=== PATIENT | male | born 1975 | race Caucasian/White ===

== ENCOUNTER 2022-03-13 14:26 | Outpatient (REF) | payer OTHER, SELFPAY ==
[2022-03-13 15:29] LABS: Influenza A PCR NEGATIVE (Negative); Influenza B PCR NEGATIVE (Negative); Resp Syncy Virus RNA Qual PCR NEGATIVE (Negative); SARS COV2 PCR INHOUSE NEGATIVE (Negative)
== END 2022-03-13 14:27 | disposition home or self-care (01) ==
LOC: HO.LNP 14:26
PROVIDERS: Visit Provider Internal Medicine
DX: Z20.822 Contact with and (suspected) exposure to COVID-19 (principal); R43.9 Unspecified disturbances of smell and taste
CPT/HCPCS: 0241U

== ENCOUNTER 2023-03-13 12:28 | Outpatient (AMB) | payer OTHER, SELFPAY ==
--- NOTE | 2023-03-13 12:33 | MHC.PC.OV ---
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 He also wanted to mention he had a hernia surgery at least 20 years back and is now feeling the mesh states it feels like its poking him. Allergies acetaminophen [From Percocet] Adverse Reaction (Intermediate, Verified 03/13/23 12:59) Hives oxycodone [From Percocet] Adverse Reaction (Intermediate, Verified 03/13/23 12:59) Hives Medication List - Last Reconciled 03/13/23 by Jd Garcia, HENRY lidocaine 5% 1 appl topical BEDTIME Tobacco use date assessed: 03/13/23 Dental Screening Dental Screen Date: 03/13/23 Did you have a dental visit in the last 12 months?: Yes Did you have a dental problem in the last 6 months where you did not have access to dental care?: No Was dental information given to patient?: Patient has dentist HPI HPI Comments History of Present Illness Details Patient is a 47-year-old male in today to establish care. 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 He is up-to-date on all immunizations aside from this year's booster for influenza and COVID. He will receive the influenza vaccine in office today. True is also due for colonoscopy, will refer to Gastroenterology. He has a chief complaint of lower back pain, which radiates down his legs bilaterally. He has a long history of lower back pain and spine issues, which is significant for disc herniation. 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 Patient has diagnostic imaging from 2014 in [facility] which demonstrated mild degenerative disc changes. Patient will send other medical records. Patient states that he recently was shoveling snow and that the pain increased after that. Denies any trauma to the area. [facility] Surgical History Hx of hernia repair Family History Maternal Grandmother Diabetes Social History Housing: House Patient Tobacco Use Status: Never used Tobacco e-Cigarette/Vaping Use: Never Used service: Yes Current occupational status: employed Cognitive needs: No Hearing needs: No Vision needs: Yes Questionnaire PHQ-9 Over the last 2 weeks, how often have you been bothered by any of the following problems? 1. Little interest or pleasure in doing things: not at all 2. Feeling down, depressed, or hopeless: not at all 3. Trouble falling or staying asleep, or sleeping too much: nearly every day 4. Feeling tired or having little energy: more than half the days 5. Poor appetite or overeating: not at all 6. Feeling bad about yourself - or that you are a failure or have let yourself or your family down: not at all 7. Trouble concentrating on things, such as reading the newspaper or watching television: not at all 8. Moving or speaking so slowly that other people could have noticed. Or the opposite - being so fidgety or restless that you have been moving around a lot more than usual: not at all 9. Thoughts that you would be better off or of hurting yourself in some way: not at all Total score: 5 Depression Screening Interpretation: Negative Depression Screening Done: Yes 50299 - PHQ-9 Billing: Yes Source: Developed by Drs. Lopez Moore, Kaylyn Quinn, Uriah Ramos and colleagues, with an educational kadi from [employer]. Thrive Questionnaire Date Thrive assessed: 03/13/23 I am a: Patient What is your living situation today?: I have a steady place to live Within the past 12 months, did the food you bought not last and you didn't have the money to get more?: Never true Within the past 12 months, did you worry whether your food would run out before you got money to buy more?: Never true Do you have trouble paying for medicines?: No Do you have trouble getting transportation to medical appointments?: No Do you have trouble paying your heating and electricity bill?: No Do you have trouble taking care of your child, family member or friend?: No Do you have trouble with day-to-day activities such as bathing, preparing meals, shopping, managing finances, etc.?: No Are you currently unemployed and looking for a job?: No Are you interested in more education?: No AUDIT C Alcohol Use Questionnaire (AUDIT-C) 1. How often do you have a drink containing alcohol?: Monthly or less 2. How many drinks containing alcohol do you have on a typical day when you are drinking?: 1 or 2 3. How often do you have six or more drinks on one occasion?: Never Total Score: 1 Score Reviewed/Action Taken: No JORDAN-7 AMB Questionnaire JORDAN-7 Date JORDAN - 7 assessed: 03/13/23 Feeling nervous, anxious, or on edge: 2 = More than half the days Not being able to stop or control worryin = Not at all Worrying too much about different things: 1 = Several days Trouble relaxin = Several days Being so restless that it is hard to sit still: 1 = Several days Becoming easily annoyed or irritable: 2 = More than half the days Feeling afraid as if something awful might happen: 3 = Nearly every day Total JORDAN-7 score (0-4 normal; 5-9 mild; 10-14 moderate; 15-21 severe): 10 Source: Developed by Drs. Lopez Moore, Kaylyn Quinn, Uriah Ramos and colleagues, with an educational kadi from [employer]. JORDAN-7 Assessment Billing JORDAN-7 Assessment Tool: JORDAN-7 Assessment 12813 Review of Systems Const Details: Constitutional : No Weight loss, No Fever, No Chills, No Fatigue, No Malaise ENT/Mouth : No sore throat, No Rhinorrhea Eyes: No Eye Pain, No Swelling, No Redness Cardiovascular : No Chest Pain, No SOB, No Dyspnea on Exertion, No Orthopnea, No Edema, No Palpitations Respiratory : No Cough, No Sputum, No Wheezing Gastrointestinal : No Nausea, No Vomiting, No Diarrhea, No Constipation, No abdominal Pain, No Hematochezia, No Melena Genitourinary : No Dysuria, No Urinary Frequency, No Hematuria, Musculoskeletal : Admits bilateral lower back pain. Skin : No Skin Lesions, No rash Neuro : No Weakness, No Numbness, No Dizziness, No Headache Psych : No Anxiety/Panic, No Depression Heme/Lymph: No Bruising, No Bleeding,No Lymphadenopathy Endocrine : No Polyuria, No Polydipsia All other systems reviewed and are negative Physical exam (Primary Care) Vital Signs: Last Vital Signs Pulse 97 03/13/23 12:36 BP 130/90 H 03/13/23 12:36 Pulse Ox 94 03/13/23 12:36 Oxygen Delivery Method Room Air 03/13/23 12:36 Care Plan Goal for BP management: Vital signs reviewed and stable. Patient will take blood pressure readings at home. BMI result Body Mass Index 33.0 Tobacco/Smoking Status: Tobacco use Status Tobacco use date assessed 03/13/23 03/13/23 12:44 Patient Tobacco Use Status Never used Tobacco 03/13/23 12:44 e-Cigarette/Vaping Use Never Used 03/13/23 12:44 PHQ-9: PHQ-9 Score PHQ-9: Total score 5 03/13/23 13:28 Depression Screening Interpretation: Negative Thrive Assessment: Date of Thrive Assessment Date Thrive assessed 03/13/23 03/13/23 13:28 Const Other: Appearance: Alert.? Oriented X3.? No acute distress.? Neck: Normal inspection.? Neck supple.?Full ROM CVS: Normal heart rate and rhythm.? Pulses normal.? Respiratory: No respiratory distress.? Breath sounds normal.? Skin: Skin warm and dry.? Normal skin color.? Normal skin turgor.?No bruising. Extremities: No lower extremity edema.? Back: No midline tenderness, no C-spine tenderness, Limited range of motion to flexion and extension. Positive straight leg test bilaterally. Neuro: Oriented X 3.? No motor deficit.? No sensory deficit. CN 2-12 intact Office Procedures Flu Questionnaire Does the patient have a severe egg allergy?: No Does the patient have severe life threatening allergies?: No Does the patient have a fever or illness today?: No Has the patient ever had Guillain-Denver Syndrome?: No Has the patient ever had any past reaction to a flu shot?: No Immunizations flu vacc [id number] 6mos up(PF) 60 mcg(15 mcgx4)/0.5 mL IM syringe Performing Provider: HENRY Pritchard [place] [facility] Administered by: Melisa Vicente CMA on 03/13/23 13:25 Dose Route Admin Location Dispensed Lot Number Expiration Date [employer] Consultant 0.5 mL IM Left Deltoid 0.5 mL [id number] 09/01/23 02770-477-79 [employer] VIS Given Date VIS Provided VIS Publication Date 03/13/23 Single Vaccine 20 Eligibility Eligibility Date Funding Source Not [facility] Eligible 03/13/23 Private Results Reviewed Results Reviewed: Will call patient with lab results. Assessment and Plan Assessment & Plan (1) Low back pain: Comment: Acute on chronic low back pain. Will give patient meloxicam, Flexeril, solanpas, to be taken as prescribed. He has been educated on signs of worsening symptoms and when to report to the office or when to report to the emergency room. Will give referral to [facility]. Patient may need updated imaging. Code(s): M54.50 - Low back pain, unspecified Qualifiers: Chronicity: acute Back pain laterality: bilateral Sciatica presence: with sciatica Sciatica laterality: bilateral sciatica Qualified Code(s): M54.42 - Lumbago with sciatica, left side; M54.41 - Lumbago with sciatica, right side Plan: Patient will follow-up in 3-4 months with physical exam. Plan Take your medications as prescribed. If you were prescribed antibiotics today, it is important that you take your medication to their entirety, do not skip any doses, do not finish them early. Follow-up with your primary care provider this week. Return to the emergency department with new or worsening symptoms. Such as fevers, chills, chest pain, shortness of breath, nausea, vomiting, dizziness, headache, vision changes, lethargy In case of emergency call 911 Orders: Orders Complete Blood Count Auto Diff Today Z13.0 - Encounter for screening for diseases of the blood and blood-forming organs and certain disorders involving the immune mechanism Comprehensive Met. Panel Today Z91.89 - Other specified personal risk factors, not elsewhere classified Lipid Panel Today E78.5 - Hyperlipidemia, unspecified PSA,Total (Free>4and<10) Today Z12.5 - Encounter for screening for malignant neoplasm of prostate Vitamin D 25-OH (D2 and D3) Today Z13.21 - Encounter for screening for nutritional disorder UA CC w/rflx Micro + Cult Today E86.0 - Dehydration TSH reflex Free T4 Today E03.9 - Hypothyroidism, unspecified Influenza [id number] Immunization Today Z23 - Encounter for immunization Referrals Neuro Spine Referral M54.50 - Low back pain, unspecified Gastroenterology Referral Z12.11 - Encounter for screening for malignant neoplasm of colon Medications: New lidocaine 4% (Salonpas (lidocaine)) 1 patch topical DAILY PRN 15 ea 0RF pain cyclobenzaprine 10 mg PO BEDTIME PRN 10 tabs 0RF muscle spasm meloxicam 15 mg PO DAILY 14 tabs 0RF Coding Level of Care Code Est Pt Level 3 (56870) Diagnoses Acute bilateral low back pain with bilateral sciatica M54.42; M54.41 Chronicity: acute Back pain laterality: bilateral Sciatica presence: with sciatica Sciatica laterality: bilateral sciatica Additional Codes JORDAN-7 Assessment Billing - JORDAN-7 Assessment Tool: JORDAN-7 Assessment 69622 ([id number]) Time Spent (min) 35
[2023-03-13 12:36] VITALS: BP 130/90; PULSE 97; O2SAT 94; BMI 33.0
== END 2023-03-13 13:41 | disposition home or self-care (01) ==
PROVIDERS: Visit Provider Nurse Practitioner Primary Care
DX: Z23 Encounter for immunization (principal)
CPT/HCPCS: 90471; 90686; 99214

== ENCOUNTER 2023-03-29 11:27 | Outpatient (AMB) | payer OTHER, SELFPAY ==
[2023-03-29 11:38] VITALS: BP 126/88; PULSE 82; O2SAT 97; BMI 33.3
--- NOTE | 2023-03-29 11:38 | A.OFFPC_ITS ---
Vital Signs 03/29/23 11:38 Height 6 ft 1 in Weight 252 lb 2 oz BMI 33.3 BP 126/88 Blood Pressure Location Rt brachial Position Sitting Pulse 82 Pulse Source Pulse Oximeter Pulse Oximetry (%) 97 Oxygen Delivery Method Room Air Intake Visit Reasons: follow up out of work Intake Note: Pt is here to extend his light duty of work note Allergies acetaminophen [From Percocet] Adverse Reaction (Intermediate, Verified 03/29/23 12:21) Hives oxycodone [From Percocet] Adverse Reaction (Intermediate, Verified 03/29/23 12:21) Hives Medication List - Last Reconciled 03/29/23 by HENRY Pritchard lidocaine 4% (Salonpas (lidocaine)) 1 patch topical DAILY PRN meloxicam 15 mg PO DAILY Tobacco use date assessed: 03/29/23 Dental Screening Dental Screen Date: 03/29/23 Did you have a dental visit in the last 12 months?: Yes Did you have a dental problem in the last 6 months where you did not have access to dental care?: No Was dental information given to patient?: Patient has dentist HPI HPI Comments History of Present Illness Details Patient is a 47-year-old male here for a follow-up in regard to light duty at his work. He was recently seen 2 weeks prior with a chief complaint of lower back pain, which radiates down his legs bilaterally. He has a long history of lower back pain and spine issues, which is significant for disc herniation. 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 The patient states that the past 2 weeks of light duty have helped his symptoms. He was recently approved for an MRI which she will try to complete within the next couple of weeks. Patient then will be seen by our spine neuro Center. He also has disability case [facility] with [facility]. At the appointment today the patient needs to extend his light work at least until he is able to get the MRI and see the Spine Center. Will complete form at appointment today. Patient has no other complaints today the appointment. [facility] Medical History (Updated 03/29/23 @ 12:33 by HENRY Pritchard) Upper respiratory tract infection Costochondritis Surgical History Hx of hernia repair Family History Maternal Grandmother Diabetes Social History Housing: House Patient Tobacco Use Status: Never used Tobacco e-Cigarette/Vaping Use: Never Used service: Yes Current occupational status: employed Cognitive needs: No Hearing needs: No Vision needs: Yes Questionnaire Thrive Questionnaire Date Thrive assessed: 03/13/23 JORDAN-7 AMB Questionnaire JORDAN-7 Date JORDAN - 7 assessed: 03/13/23 Source: Developed by Drs. Lopez Moore, Kaylyn Quinn, Uriah Ramos and colleagues, with an educational kadi from [employer]. Review of Systems Const All systems reviewed & are unremarkable except as noted in HPI and below Card Denies chest pain and Denies dyspnea Resp Denies dyspnea Musc Reports as per HPI, Reports back pain (Admits lower back pain, with radiculopathy down bilateral lower extremities) and Denies deformity Physical exam (Primary Care) Vital Signs: Last Vital Signs Pulse 82 03/29/23 11:38 BP 126/88 03/29/23 11:38 Pulse Ox 97 03/29/23 11:38 Oxygen Delivery Method Room Air 03/29/23 11:38 Care Plan Goal for BP management: Vital signs reviewed stable BMI result Body Mass Index 33.3 Tobacco/Smoking Status: Tobacco use Status Tobacco use date assessed 03/29/23 03/29/23 11:45 Patient Tobacco Use Status Never used Tobacco 03/29/23 11:42 e-Cigarette/Vaping Use Never Used 03/29/23 11:42 Thrive Assessment: Date of Thrive Assessment Date Thrive assessed 03/13/23 03/29/23 11:42 Const Other: Appearance: Alert.? Oriented X3.? No acute distress.? CVS: Normal heart rate and rhythm.? Pulses normal.? Respiratory: No respiratory distress.? Breath sounds normal.? Extremities: No lower extremity edema.? Back: Positive straight leg bilaterally. Neuro: Oriented X 3.? No motor deficit.? No sensory deficit. CN 2-12 intact Assessment and Plan Assessment & Plan (1) Low back pain: Comment: Patient has MRI scheduled in 2 weeks. Has referral for our [facility]. Patient will continue to perform light duty at work which he states has been helping his symptoms. Patient has been educated on signs of worsening symptoms and when to report to the office or when to report to the emergency room. Code(s): M54.50 - Low back pain, unspecified Qualifiers: Chronicity: acute Back pain laterality: bilateral Sciatica presence: with sciatica Sciatica laterality: bilateral sciatica Qualified Code(s): M54.42 - Lumbago with sciatica, left side; M54.41 - Lumbago with sciatica, right side Plan: Follow-up in 4 weeks. Coding Level of Care Code Est Pt Level 3 (40783) Diagnoses Acute bilateral low back pain with bilateral sciatica M54.42; M54.41 Chronicity: acute Back pain laterality: bilateral Sciatica presence: with sciatica Sciatica laterality: bilateral sciatica Time Spent (min) 30
== END 2023-03-29 13:03 | disposition home or self-care (01) ==
PROVIDERS: PCP Nurse Practitioner Primary Care; Visit Provider Nurse Practitioner Primary Care
DX: M54.42 Lumbago with sciatica, left side (principal); M54.41 Lumbago with sciatica, right side
CPT/HCPCS: 99213

== ENCOUNTER 2023-05-02 14:55 | Outpatient (AMB) | payer OTHER, SELFPAY ==
[2023-05-02 14:59] VITALS: BP 129/77; PULSE 94; BMI 33.3
--- NOTE | 2023-05-02 14:59 | MHC.OFFVIS ---
Intake Vital Signs 05/02/23 14:59 Height 6 ft 1 in Weight 252 lb 10.396 oz BMI 33.3 BP 129/77 Blood Pressure Location Lt brachial Position Sitting Pulse 94 Intake Visit Reasons: Colonoscopy screening Intake Note: New patient in office for colonoscopy screening. CC: Patient denies having any GI symptoms or concerns today. Allergies acetaminophen [From Percocet] Adverse Reaction (Intermediate, Verified 03/29/23 12:21) Hives oxycodone [From Percocet] Adverse Reaction (Intermediate, Verified 03/29/23 12:21) Hives HPI Colonoscopy screening HPI Details 47-year-old male here for preprocedural meeting to discuss a screening colonoscopy. He is referred by Jd Garcia of [facility] primary care. PMX Low back pain Acute sinusitis Costochondritis * SURGICAL HISTORY Hernia repair - left ingiunal * ALLERGIES Oxycodone - visual hallucinations * [employer] LABS: None in our system TODAY'S VISIT He is here today with his who is supportive This is his first colonoscopy. No bowel or upper GI problwems. He denies any cardiac or respiratory problems. There are no prior problems with anesthesia or sedation. No ID problems. There is no known FHX of crc or polyps. [facility] Medical History Upper respiratory tract infection Costochondritis Surgical History (Updated 05/02/23 @ 16:47 by KESIHA Woods) Hx of hernia repair Family History Maternal Grandmother Diabetes Breast cancer Social History Housing: House Alcohol intake: current Alcohol intake frequency: holidays/special occasions only Patient Tobacco Use Status: Never used Tobacco e-Cigarette/Vaping Use: Never Used service: Yes Current occupational status: employed Cognitive needs: No Hearing needs: No Vision needs: Yes Review of Systems Const Denies fatigue, Denies fever(s), Denies night sweats, Denies poor appetite and Denies weight loss Eyes Details: glasses Reports requires corrective lenses ENT Reports Normal hearing present, Denies dental pain, Denies dysphagia, Denies hearing loss, Denies mouth pain, Denies odynophagia, Denies throat swelling, Denies tongue swelling and Reports other (Dentition adequate) Card Reports no additional complaints Resp Reports no additional complaints GI Details: Denies abdominal pain, Denies melena, Denies bloating, Denies hematochezia, Denies constipation, Denies GI cramping, Denies dysphagia, Denies excessive flatus, Denies early satiety, Denies heartburn, Denies diarrhea, Denies nausea, Denies odynophagia, Denies vomiting and Denies hematemesis Skin/Breast Denies pruritus, Denies lesions, Denies rash and Denies jaundice Neuro Reports Normal hearing present and Denies Abnormal speech present Endo Denies fatigue Aller/Immun Denies throat swelling and Denies tongue swelling Physical Exam Vital Signs: Last Vital Signs Pulse 94 05/02/23 14:59 BP 129/77 05/02/23 14:59 BMI result Body Mass Index 33.3 Const General: cooperative, no acute distress, well developed and well groomed Nutritional Appearance: well nourished and obese Orientation/consciousness: oriented to person, oriented to place and oriented to time Limitations: No language barrier HEENT Head: Yes normocephalic and Yes atraumatic Eyes General: appearance normal, both eyes and all related structures Pupils: Equal, round and reactive pupils present Neck Neck: Yes normal visual inspection and Yes no lymphadenopathy Thyroid: Thyroid normal Resp Effort & Inspection: normal respiratory effort and able to speak in complete sentences Auscultation: clear to auscultation bilaterally Cardio Rate: regular rate Rhythm: regular rhythm Heart sounds: Normal, physiologic split S2 sound present Peripheral pulses: radial pulses present and posterior tibial pulses present GI Inspection: No distended, No Abdominal panniculus present and Yes obesity Palpation (GI): Soft to palpation, nontender, no guarding, not rigid and No hepatosplenomegaly present Percussion: Yes normal to percussion Auscultation: normal bowel sounds Rectal Exam - Male: Yes deferred Skin General skin exam: no rashes or lesions noted, turgor normal, skin not dry, no jaundice, No spider nevi and no striae Rashes: no rashes Nails: normal Neuro General: oriented to person, oriented to place and oriented to time Cranial nerves: Yes Equal, round and reactive pupils present and Yes Normal hearing present Speech: No Abnormal speech present Extrem General: Yes normal to inspection, No clubbing, No cyanosis and No edema Psych Appearance: grossly normal and well kempt Mental Status: mental status grossly normal Speech and movement: Normal speech and movement present Affect: normal affect Attitude: cooperative Thought process: Normal thought process present and not confabulating Thought content: Normal thought content present Insight: Good insight present (Psych) Judgement: Good judgement present (Psych) Assessment & Plan Assessment & Plan (1) Pre-op examination: Code(s): Z01.818 - Encounter for other preprocedural examination Plan He is here today with his who is supportive This is his first colonoscopy. No bowel or upper GI problwems. He denies any cardiac or respiratory problems. There are no prior problems with anesthesia or sedation. No ID problems. There is no known FHX of crc or polyps. Orders: Orders Comprehensive Met. Panel Today Z01.818 - Encounter for other preprocedural examination Complete Blood Count Auto Diff Today Z01.818 - Encounter for other preprocedural examination Colonoscopy - GI Use Only Today Z01.818 - Encounter for other preprocedural examination Medications: New peg 3350-electrolytes 236-22.74-6.74 -5.86 gram (Golytely) until fecal effluent is clear; do not exceed a total volume of 2,000 mL 240 mL PO Q10M 1 day 4,000 mL 0RF Z12.11 - Encounter for screening for malignant neoplasm of colon bisacodyl (Dulcolax (bisacodyl)) 10 mg (2 x 5 mg) PO BEDTIME 2 days 4 tabs 0RF Coding Level of Care Code New Pt Level 3 (04299) Diagnoses Pre-op examination Z01.818
== END 2023-05-02 15:47 | disposition home or self-care (01) ==
PROVIDERS: Visit Provider Nurse Practitioner
DX: Z01.818 Encounter for other preprocedural examination (principal); Z12.11 Encounter for screening for malignant neoplasm of colon
CPT/HCPCS: S0285

== ENCOUNTER → 2023-05-02 14:55 | Outpatient (BNVA) | payer OTHER, SELFPAY | PROVIDERS: Visit Provider Nurse Practitioner ==

== ENCOUNTER 2023-05-03 12:53 | Outpatient (AMB) | payer OTHER, SELFPAY ==
--- NOTE | 2023-05-03 13:04 | A.SPINEOV_ITS ---
Intake Intake Visit Reasons: low back pain Intake Note: Mr. Winkler is here today c/o low back pain. 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 It started when he was early on in his career and was doing heavy amount of running with weighted vest and back packs. He ended up herniated disc at that time at L5-S1 and treated it conservatively and eventually recovered to a degree. However, since that time he has always had issues with lower lumbar and lumbosacral back pain. It is particularly worse if he is carrying any weight on his chest or shoulders. This is a common thing for him because he has to wear armored vest as well as carry a rifle and a gun. After few days of work where he standing for 7 or 8 hours with this weight on his chest, he will be in debilitating pain. He gets intermittent shooting pain down his leg but the primary symptom is back pain. It starts when he 1st gets up in the morning and is present all throughout the day. If he goes a number of days where he has not wearing the weighted equipment he generally is doing okay. He will still have the back pain but is not nearly as intense. He has taken a leave and that seems to help a little. He takes muscle relaxers when he is able to. There are some limitations on when he can take these based on his career. He is done lidocaine patches. He is done physical therapy multiple times. It seems to work well he is doing it, but over the course of time it just does not seem to have any lasting effect. He has had no injections. 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 He comes today with an MRI showing degenerative disc disease at L5-S1. PMH: No major medical problems, he had a hernia surgery years ago. Social hx: He does not smoke, drink or use any recreational drugs Medications: None Allergies: None Physical exam: Intact strength, gait and reflexes Imaging review: Lumbar MRI done at [facility] shows a mild to moderately degenerative disc at L5-S1. I can see a report from 2005 with the herniated disc but I was unable to see the imaging itself to see if there have been significant changes. The herniated disc has retracted itself. 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 Most of the pain seems to be aggravated when he is carrying significant amounts of weight on his chest with his equipment, armor and service weapons. His quality of life has been significantly affected by his pain. More or less he has had pain every day for the last 18 years or so since he had the original injury. He has tried conservative treatment in the form of physical therapy multiple times with limited success. He is also on leave and occasional muscle relaxers. When he does avoid doing prolonged standing and he is able to take the weight off, he seems to have more manageable discomfort. I reviewed his MRI with him at length. The only finding I see is that there is a degenerative disc at L5-S1. It is not significantly collapsed, I would rate it as mild to moderately degenerative. We discussed the fact that back pain can often be elusive in the exact source of it can be difficult to find. It seems likely to me that this is part of his symptom etiology but may not be all of it. I would like him to see Dr Modi in pain management to see if there is something more we can do in terms of localizing this with an injection. If we can prove that this is where the pain is coming from that I think it would make a stronger case for surgical indication. I also gave him another referral to physical therapy. He did notice when he lost weight that there was a significant improvement in his back pain. He has gained about 40 lb over the last 5 years. He would like to work on getting his weight down again which is certainly reasonable. I gave him a note for work as well. I will see him back after Dr. Modi has a chance to evaluate and treat him. Thank you for allowing us to care for your patient. The total time spent with this visit with this patient was 45 minutes reviewing history, physical exam, lumbar imaging review, and implementation of treatment plan or further diagnostic testing Javier Lopez MD,PhD [facility] Orders: Orders PT Evaluation and Treatment Today M51.36 - Other intervertebral disc degeneration, lumbar region Referrals Physiatry Referral M51.36 - Other intervertebral disc degeneration, lumbar region Coding Level of Care Code New Pt Level 4 (19589) Diagnoses Lumbar degenerative disc disease M51.36
== END 2023-05-03 13:54 | disposition home or self-care (01) ==
PROVIDERS: PCP Nurse Practitioner Primary Care; Referring Provider Nurse Practitioner Primary Care; Visit Provider Physician Assistant
DX: M51.36 Other intervertebral disc degeneration, lumbar region (principal)
CPT/HCPCS: 99204

== ENCOUNTER → 2023-05-03 12:53 | Outpatient (BNVA) | payer OTHER, SELFPAY | PROVIDERS: PCP Nurse Practitioner Primary Care; Visit Provider Physician Assistant | DX: M51.36 Other intervertebral disc degeneration, lumbar region (principal) | CPT/HCPCS: 99202 ==

== ENCOUNTER 2023-05-13 11:17 | Outpatient (AMB) | payer OTHER, SELFPAY ==
--- NOTE | 2023-05-13 11:22 | A.OFFVIS_ITS ---
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 He does have a history of herniated disk at that time at L5- S1 which recovered to some degree with conservative treatments. Currently his back pain is axial and also radiates into his lower bilateral extremities posteriorly with numbness and tingling in his feet, cramping in calves and heavy sensation in both legs, worse in right leg. 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 At the end of the day, this causes him significant debilitating neck through lower back pain. Given significant lower back pain with radicular symptoms, he is not able to restart formal physical therapy. Patient also reports recent development of right hip pain without any inciting events. Pain extends to his right anterior thigh and groin. Walking and weight bearing increases his groin pain and his right leg has gave out few times. Pain is rated at 6-7/10 today and can easily get to 8/10 during mornings and sleep. Pain affects his daily activities, functioning, sleep and quality of life. Denies previous spine surgery. The back pain is function and mobility limiting and has been resistant to conservative treatments. Pain also increases with sneezing and coughing. Denies any bladder or bowel dysfunction or saddle anesthesia. Location Lower back radiates down bilateral legs, neck pain w/ radiation to thoracic Duration Chronic pain since 2005 Characteristics of symptom or complaint Aching, shooting, numbness, cramping, burning, tingling, radiating, tight Aggravating or associated factors Bending, forward flexion, prolonged standing, running, lifting weights Relieving factors Lidocaine patch, Aleeve, Meloxicam, Cyclobenzaprine, activity modifications Treatment PT- no improvement 5+ years ago at [facility], home exercise program [facility], [facility] Medical History (Updated 05/13/23 @ 12:56 by HENRY Schaeffer) Chronic headaches Lumbar degenerative disc disease Low back pain Upper respiratory tract infection Costochondritis Surgical History Hx of hernia repair Family History Maternal Grandmother Diabetes Breast cancer Social History Housing: House Alcohol intake: current Alcohol intake frequency: holidays/special occasions only Patient Tobacco Use Status: Never used Tobacco e-Cigarette/Vaping Use: Never Used service: Yes Current occupational status: employed Cognitive needs: No Hearing needs: No Vision needs: Yes Review of Systems Const All systems reviewed & are unremarkable except as noted in HPI and below Physical Exam General: Appears afebrile. Alert and oriented. Mood and affect appropriate. Follows and participates in conversation appropriately. Respiratory effort is unlabored. No cough. Able to transition from sit to stand unassisted. Ambulates with bilaterally normal heel strike and toe off. Back/Spine/Pelvis Other: Patient is able to walk and stand on heels and tip toes with no difficulties demonstrating good motor tone. No limping. Can flex forward to 65-70 degrees and extend to 10-15 degrees before experiencing lumbar pain, worse pain with forward flexion and bending. Demonstrates 5/5 left and 4/5 right (due to pain )strength of quadriceps bilaterally as well as flexion/dorsiflexion of bilateral feet against resistance. 2+ pedal pulses bilaterally. Seated straight leg rise with dorsiflexion negative bilaterally. +2 left +1 right patellar and +1 achilles reflexes bilaterally. Facet loading test positive bilaterally. Jose?s and Sti nchfield tests are negative bilaterally. Moderate groin pain with right external hip rotations. Significant paraspinals tenderness mostly on the right side mid to lower back. Valsalva maneuver positive. Cervical Spine: cervical ROM normal, cervical muscular tenderness, pain with cervical ROM, cervical spasm and No Cervical spine tenderness Thoracic/Lumbar Spine: thoracic and lumbar spine normal to inspection, No Thoracic/lumbar spine scar(s), Lasegue's sign negative, straight leg raise negative bilaterally, pain with thoraco-lumbar ROM, paraspinal muscle tenderness, thoraco-lumbar ROM limited, No thoracic spinal tenderness and lumbar spinal tenderness (L4-S1) Pelvis: buttock tenderness bilaterally Sacroiliac joints: bilaterally (mild) tender to palpation Results Reviewed Results Reviewed: MR SPINE LUMBAR without CONTRAST 04/13/23 at [facility] INDICATION: Lower back pain radiating to the thoracic spine and bilateral lower extremities with numbness, weakness, and tingling. TECHNIQUE: Unenhanced multiplanar, multisequence MR imaging of the lumbar spine. COMPARISON: None available. FINDINGS: There is mild degenerative retrolisthesis of L5 on S1. Mild loss of intervertebral disc space height and normal T2 hyperintensity of the L5-S1 disc material. The remaining intervertebral disc spaces are maintained. Lower lumbar facet arthrosis. There is no acute paraspinal abnormality identified. Conus and cauda equina of normal appearance. The conus tip L1-L2. Examination through the L1-L2, L2-L3, L3-L4 and L4-L5 intervertebral levels without central stenosis or significant foraminal narrowing. Examination through the L5-S1 intervertebral level revealing a small LEFT posterior lateral disc osteophyte. Mild degenerative retrolisthesis. There is no significant central stenosis. There is mild LEFT lateral recess encroachment. No significant foraminal narrowing. IMPRESSION: Mild loss of intervertebral disc space height and desiccation of the disc material at L5-S1 with a small LEFT posterior lateral disc osteophyte. Mild degenerative retrolisthesis. There is no significant central stenosis. There is mild LEFT lateral recess encroachment. No significant foraminal narrowing. The remaining intervertebral levels without central stenosis or foraminal narrowing. Assessment & Plan Assessment & Plan (1) Lumbar degenerative disc disease: Code(s): M51.36 - Other intervertebral disc degeneration, lumbar region (2) Lumbar radiculopathy: Code(s): M54.16 - Radiculopathy, lumbar region (3) Right hip pain: Code(s): M25.551 - Pain in right hip (4) Cervical spondylosis: Code(s): M47.812 - Spondylosis without myelopathy or radiculopathy, cervical region (5) Muscle spasm: Code(s): M62.838 - Other muscle spasm (6) Cervical radiculopathy: Code(s): M54.12 - Radiculopathy, cervical region (7) Lumbosacral spondylosis: Code(s): M47.817 - Spondylosis without myelopathy or radiculopathy, lumbosacral region Plan For radicular lower back pain, we will proceed with Bilateral L5-S1 TFESI with sedation and fluoroscopy. Expectations, risks and benefits were reviewed. Patient is aware he will be contacted to schedule this procedure. Patient may consider physical therapy after injections if he obtains significant relief. Right hip xray to assess for degenerative changes and any dislocation or fracture. Cervical xray and MRI to further evaluate radiating neck pain into his thoracic and chest region with history of central disc protrusion or disc bulge at C5-C6, to assess for neural integrity and compression. For muscle spasms, patient will trial methocarbamol and stop cyclobenzaprine. Side effects and precautions reviewed with patient and his family. I will also send script to [facility] for TENS unit for neck and lower back pain. Informational pamphlet provided. Continue home exercise program, avoid quick movements, activity modifications, Tylenol, NSAIDs, ice/heat therapy and lidocaine patches. All questions and concerns have been answered and patient agreed with the plan. Follow up after injections/MRI/xray results and sooner as needed. Orders: Orders XR hip RT w PEL1V Today M25.551 - Pain in right hip XR cervical spine 3V Today M47.812 - Spondylosis without myelopathy or radiculopathy, cervical region MR cervical spine wo con Today F40.240 - Claustrophobia, M47.812 - Spondylosis without myelopathy or radiculopathy, cervical region, M54.12 - Radiculopathy, cervical region Medications: New methocarbamol 750 mg PO Q8H 30 days PRN 90 tabs 0RF muscle spasm M62.838 - Other muscle spasm Coding Level of Care Code New Pt Level 4 (74400) Diagnoses Lumbar degenerative disc disease M51.36 Lumbar radiculopathy M54.16 Right hip pain M25.551 Cervical spondylosis M47.812 Muscle spasm M62.838 Cervical radiculopathy M54.12 Lumbosacral spondylosis M47.817
[2023-05-13 11:29] VITALS: BP 149/88; PULSE 104; O2SAT 100; BMI 33.0
== END 2023-05-13 12:03 | disposition home or self-care (01) ==
PROVIDERS: PCP Nurse Practitioner Primary Care; Referring Provider Physician Assistant; Visit Provider Nurse Practitioner Family
DX: M51.36 Other intervertebral disc degeneration, lumbar region (principal); M54.16 Radiculopathy, lumbar region; M25.551 Pain in right hip; M47.812 Spondylosis without myelopathy or radiculopathy, cervical region; M62.838 Other muscle spasm; M54.12 Radiculopathy, cervical region; M47.817 Spondylosis without myelopathy or radiculopathy, lumbosacral region
CPT/HCPCS: 99204

== ENCOUNTER 2023-05-13 11:17 | Outpatient (REF) | payer OTHER, SELFPAY ==
--- NOTE | ~2023-05-13 | XR_ITS ---
EXAMINATION: XR HIP, RIGHT CLINICAL INFORMATION: Right hip pain. COMPARISON: None available. TECHNIQUE: Single view pelvis with two views of the right hip. FINDINGS: No fracture. Alignment is anatomic. Hip joint space is maintained. Soft tissues are unremarkable. XR/XR hip RT w PEL1V IMPRESSION: Normal right hip.
--- NOTE | ~2023-05-13 | XR_ITS ---
EXAMINATION: XR CERVICAL SPINE CLINICAL INFORMATION: Spondylosis without myelopathy or radiculopathy. COMPARISON: None available. TECHNIQUE: 6 views of the cervical spine. FINDINGS: There is straightening of the cervical spine. No soft tissue swelling, fractures or subluxations seen. Degenerative changes are present, predominantly from C3 through C7 with disc space narrowing at all levels. Some anterior osteophytes are seen at C5-C6. Foramina are widely patent bilaterally. XR/XR cervical spine 3V IMPRESSION: Degenerative changes in the cervical spine as described above.
[2023-05-13 12:31] LABS: MANUAL DIFF FLAG NO
[2023-05-13 13:33] LABS: Basophils Percent Auto 0.5 % (0-2); Eosinophils Absolute Auto 0.1 X10*3/uL (0.0-0.4); Eosinophils Percent Auto 1.4 % (0-4); Hematocrit 39.3 % (42.0-52.0); Hemoglobin 14.2 g/dl (14.0-18.0); Imm Gran Abs Auto 0.02 X10*3/uL (0.00-0.03); Imm Gran Pct Auto 0.4 % (0.0-0.4); Lymphocytes Absolute Auto 2.2 X10*3/uL (1.2-4.9); Lymphocytes Percent Auto 39.3 % (20-40); Mean Corpuscular HGB Conc 36.1 g/dl (31.0-36.0); Mean Corpuscular Hemoglobin 30.9 pg (27.0-33.0); Mean Corpuscular Volume 85.6 fL (80.0-98.0); Mean Platelet Volume 10.7 fL (9.4-12.4); Monocytes Absolute Auto 0.5 X10*3/uL (0.1-1.2); Monocytes Percent Auto 9.1 % (2-11); Neutrophils Absolute Auto 2.8 x10*3/uL (2.0-8.3); Neutrophils Percent Auto 49.3 % (45-73); Platelet Count 260 X10*3/uL (160-400); Red Blood Count 4.59 X10*6/uL (4.60-5.80); Red Cell Distribution Width 12.6 % (11.0-16.0); White Blood Count 5.7 X10*3/uL (4.8-10.8)
[2023-05-13 14:21] LABS: Alanine Aminotransferase 39 U/L (0-40); Albumin Level 4.5 g/dL (3.5-5.0); Alkaline Phosphatase 71 U/L (39-117); Anion Gap 14 (12-20); Aspartate Amino Transferase 25 U/L (5-37); Bilirubin Total 0.3 mg/dL (0.0-1.0); Blood Urea Nitrogen 13 mg/dL (9-16); Calcium 9.6 mg/dL (8.4-10.2); Carbon Dioxide 27 mmol/L (22-29); Chloride 102 mmol/L (96-108); Estimated Glomerular Filt Rate > 60; Glucose Random 113 mg/dL (60-115); Potassium 3.9 mmol/L (3.3-5.1); Sodium 139 mmol/L (135-145); Total Protein 8.2 g/dL (6.5-8.0)
[2023-05-13 14:39] LABS: PSA,Total (Free>4and<10) 1.08 ng/mL (0.00-4.00)
[2023-05-13 14:48] LABS: TSH reflex Free T4 1.11 uIU/mL (0.32-4.0)
[2023-05-17 15:03] LABS: Vitamin D 25-OH, D2 <4 ng/mL; Vitamin D 25-OH, D3 14 ng/mL; Vitamin D 25-OH, Total 14 ng/mL (30-100)
== END 2023-05-13 11:18 | disposition home or self-care (01) ==
LOC: HO.LAB 11:17
PROVIDERS: Absent Provider Nurse Practitioner; PCP Nurse Practitioner Primary Care; Referring Provider Physician Assistant; Visit Provider Nurse Practitioner Family
DX: Z01.818 Encounter for other preprocedural examination (principal); E03.9 Hypothyroidism, unspecified; M25.551 Pain in right hip; M62.838 Other muscle spasm; M51.36 Other intervertebral disc degeneration, lumbar region; M47.22 Other spondylosis with radiculopathy, cervical region; M47.27 Other spondylosis with radiculopathy, lumbosacral region; E86.0 Dehydration; Z13.0 Encounter for screening for diseases of the blood and blood-forming organs and certain disorders involving the immune mechanism; Z13.21 Encounter for screening for nutritional disorder; Z12.5 Encounter for screening for malignant neoplasm of prostate; Z91.89 Other specified personal risk factors, not elsewhere classified
CPT/HCPCS: 36415; 72040; 73502; 80053; 82306; 84153; 84443; 85025; 99202

== ENCOUNTER 2023-07-01 14:12 | Outpatient (AMB) | payer OTHER, SELFPAY ==
[2023-07-01 14:14] VITALS: BP 132/90; PULSE 82; O2SAT 97
--- NOTE | 2023-07-01 14:14 | MHC.PC.OV ---
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 Required: No Accompanied by: Self / Same As Patient Allergies acetaminophen [From Percocet] Adverse Reaction (Intermediate, Verified 07/01/23 14:55) Hives oxycodone [From Percocet] Adverse Reaction (Intermediate, Verified 07/01/23 14:55) Hives Medication List - Last Reconciled 07/01/23 by HENRY Pritchard cholecalciferol (vitamin D3) mcg PO methocarbamol 750 mg PO Q8H PRN 30 days Tobacco use date assessed: 03/29/23 Dental Screening Dental Screen Date: 03/29/23 Did you have a dental visit in the last 12 months?: Yes HPI HPI Comments History of Present Illness Details Patient is a 40-year-old male in today for a sick visit. Patient has a past medical history significant for cervical and lumbar pain with radiculopathy bilaterally. Patient establish care with pain management and [facility]. Patient also has referral of for physiatry but has not heard from the Department yet. Patient is currently utilizing methocarbamol with mild to moderate effect p.r.n. Patient has complaint of chronic headache and TMJ pain. Recently was at dentist that said he is also grinding teeth. Patient states that he gets cramping in his bilateral jaw muscle after eating, which often leads to headaches. Patient states that he also snores when he tries to sleep, which his confirms. Will refer to Sleep Medicine. He also offers complaint of tingling in his bilateral feet when he is standing for long durations or trying to exercise for more than 15-20 minutes. Patient has been instructed to use inserts any issues. Will also give referral to Podiatry Anxiety depression. Patient denies SI/HI. Does state that he has mood lability. He is interested in pursuing care through therapist. Will connect him with community navigator to assist in finding therapist in the area. PENDING SALE TO [facility] Medical History (Updated 07/01/23 @ 15:45 by HENRY Pritchard) Chronic headaches Lumbar degenerative disc disease Low back pain Upper respiratory tract infection Costochondritis Surgical History Hx of hernia repair Family History Maternal Grandmother Diabetes Breast cancer Social History Housing: House Alcohol intake: current Alcohol intake frequency: holidays/special occasions only Patient Tobacco Use Status: Never used Tobacco e-Cigarette/Vaping Use: Never Used service: Yes Current occupational status: employed Cognitive needs: No Hearing needs: No Vision needs: Yes Questionnaire PHQ-9 Over the last 2 weeks, how often have you been bothered by any of the following problems? 38260 - PHQ-9 Billing: Patient declined-do not bill Source: Developed by Drs. Lopez Moore, Kaylyn Quinn, Uriah Ramos and colleagues, with an educational kadi from [employer]. Thrive Questionnaire Date Thrive assessed: 03/13/23 I am a: Patient What is your living situation today?: I have a steady place to live Within the past 12 months, did the food you bought not last and you didn't have the money to get more?: Never true Within the past 12 months, did you worry whether your food would run out before you got money to buy more?: Never true THRIVE Score: 0 AUDIT C Alcohol Use Questionnaire (AUDIT-C) 1. How often do you have a drink containing alcohol?: Monthly or less 2. How many drinks containing alcohol do you have on a typical day when you are drinking?: 1 or 2 3. How often do you have six or more drinks on one occasion?: Never Total Score: 1 Score Reviewed/Action Taken: Yes JORDAN-7 AMB Questionnaire JORDAN-7 Date JORDAN - 7 assessed: 03/13/23 Feeling nervous, anxious, or on edge: 3 = Nearly every day Not being able to stop or control worryin = More than half the days Worrying too much about different things: 3 = Nearly every day Trouble relaxin = Nearly every day Being so restless that it is hard to sit still: 3 = Nearly every day Becoming easily annoyed or irritable: 3 = Nearly every day Feeling afraid as if something awful might happen: 3 = Nearly every day Total JORDAN-7 score (0-4 normal; 5-9 mild; 10-14 moderate; 15-21 severe): 20 Source: Developed by Drs. Lopez Moore, Kaylyn Quinn, Uriah Ramos and colleagues, with an educational kadi from [employer]. JORDAN-7 Assessment Billing JORDAN-7 Assessment Tool: JORDAN-7 Assessment 50219 Review of Systems Const Details: Constitutional : No Weight loss, No Fever, No Chills, No Fatigue, No Malaise ENT/Mouth : No sore throat, Admits Bilateral Jaw pain. Eyes: No Eye Pain, No Swelling, No Redness Cardiovascular : No Chest Pain, No SOB, No Dyspnea on Exertion, No Orthopnea, No Edema, No Palpitations Respiratory : No Cough, No Sputum, No Wheezing, Admits snoring. Gastrointestinal : No Nausea, No Vomiting, No Diarrhea, No Constipation, No abdominal Pain, No Hematochezia, No Melena Genitourinary : No Dysuria, No Urinary Frequency, No Hematuria, Musculoskeletal : Admits chronic back pain. Skin : No Skin Lesions, No rash Neuro : No Weakness, No Numbness, No Dizziness, Admits occasional Headache Psych : Admits some Anxiety/Panic, No Depression, Denies SI/HI. Endocrine : No Polyuria, No Polydipsia All other systems reviewed and are negative Physical exam (Primary Care) Vital Signs: Last Vital Signs Pulse 82 07/01/23 14:14 BP 132/90 H 07/01/23 14:14 Pulse Ox 97 07/01/23 14:14 Oxygen Delivery Method Room Air 07/01/23 14:14 BMI result Body Mass Index 3.3 Tobacco/Smoking Status: Tobacco use Status Tobacco use date assessed 03/29/23 07/01/23 14:16 Patient Tobacco Use Status Never used Tobacco 07/01/23 14:16 e-Cigarette/Vaping Use Never Used 07/01/23 14:16 Thrive Assessment: Date of Thrive Assessment Date Thrive assessed 03/13/23 07/01/23 14:16 Const Other: Appearance: Alert.? Oriented X3.? No acute distress.? Head: Normocephalic, atraumatic Neck: Normal inspection.? Neck supple.? CVS: Normal heart rate and rhythm.? Pulses normal.? Respiratory: No respiratory distress.? Breath sounds normal.? Neuro: Oriented X 3.? No motor deficit.? No sensory deficit. CN 2-12 intact Orientation/consciousness: oriented to person [facility] Head: Yes normocephalic Face and sinus: Yes crepitus (Bilateral jaw) and Yes Facial tenderness on exam of face and sinuses (Bilateral TMJ ) Neck Neck: Yes normal visual inspection and Yes full ROM Resp Effort & Inspection: normal respiratory effort Auscultation: clear to auscultation bilaterally Cardio Rate: regular rate Rhythm: regular rhythm Heart sounds: S1 normal heart sound present and S2 normal heart sound present Peripheral pulses: Peripheral pulses 2+ throughout General: Yes no CVA tenderness Back/Spine/Pelvis Back: no CVA tenderness Skin General skin exam: no rashes or lesions noted Neuro General: oriented to person Cognition (Neuro): normal cognition Gait exam (Neuro): Normal gait present Extrem General: Yes normal to inspection Right lower extremity: normal to inspection Left lower extremity: normal to inspection Results Reviewed Results Reviewed: Sodium 139 135-145 mmol/L Potassium 3.9 3.3-5.1 mmol/L CL 102 96-108 mmol/L CO2 27 22-29 mmol/L Gap 14 12-20 BUN 13 9-16 mg/dL Creat 1.16 0.5-1.4 mg/dL EGFR > 60 NOTE: For -Swazi individuals, multiply the result by 1.210. Chronic Kidney Disease: Estimated GFR < 60 mL/min/1.73m2 Severe Kidney Disease: Estimated GFR < 15 mL/min/1.73m2 Glucose, Random 113 60-115 mg/dL CA 9.6 8.4-10.2 mg/dL Total Bili 0.3 0.0-1.0 mg/dL AST (GOT) 25 5-37 U/L ALT (GPT) 39 0-40 U/L Protein, Total 8.2 H 6.5-8.0 g/dL Alb 4.5 3.5-5.0 g/dL Alk Phos 71 39-117 U/L Assessment and Plan Assessment & Plan (1) Snoring: Comment: Will give patient referral to Sleep Medicine. Code(s): R06.83 - Snoring (2) TMJ arthralgia: Comment: Will send patient to physical therapy. Code(s): M26.629 - Arthralgia of temporomandibular joint, unspecified side Qualifiers: Laterality: bilateral Qualified Code(s): M26.623 - Arthralgia of bilateral temporomandibular joint (3) Anxiety: Comment: Patient is meeting with community navigator to discuss establishing care for therapist. Code(s): F41.9 - Anxiety disorder, unspecified (4) Tingling of both feet: Comment: Patient will get referral to baggage porter head. Has also been educated to use inserts for shoes. Code(s): R20.2 - Paresthesia of skin Plan: Take your medications as prescribed. If you were prescribed antibiotics today, it is important that you take your medication to their entirety, do not skip any doses, do not finish them early. Follow-up with your primary care provider this week. Return to the emergency department with new or worsening symptoms. Such as fevers, chills, chest pain, shortness of breath, nausea, vomiting, dizziness, headache, vision changes, lethargy In case of emergency call 911 Plan Patient will follow-up with physical exam in 2 months. Orders: Orders Vitamin D 25-OH (D2 and D3) 1 Month Z13.21 - Encounter for screening for nutritional disorder PT Evaluation and Treatment Today M26.623 - Arthralgia of bilateral temporomandibular joint Referrals Sleep Medicine Referral R06.83 - Snoring Podiatry Referral R20.2 - Paresthesia of skin Coding Level of Care Code Est Pt Level 4 (44919) Diagnoses Snoring R06.83 Bilateral temporomandibular joint pain M26.623 Laterality: bilateral Anxiety F41.9 Tingling of both feet R20.2 Additional Codes JORDAN-7 Assessment Billing - JORDAN-7 Assessment Tool: JORDAN-7 Assessment [id number] ([id number]) Time Spent (min) 31
== END 2023-07-01 15:54 | disposition home or self-care (01) ==
PROVIDERS: Visit Provider Nurse Practitioner Primary Care
DX: R06.83 Snoring (principal); M26.623 Arthralgia of bilateral temporomandibular joint; F41.9 Anxiety disorder, unspecified; R20.2 Paresthesia of skin
CPT/HCPCS: 99214

== ENCOUNTER 2023-07-03 14:56 | Outpatient (AMB) | payer OTHER, SELFPAY ==
--- NOTE | 2023-07-03 15:01 | MHC.OFFVIS ---
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 Constant loud snoring and keeps him up at night. Wakes up gasping for air and body jerks at times. Has no problem falling at sleep is staying at sleep. Allergies acetaminophen [From Percocet] Adverse Reaction (Intermediate, Verified 07/03/23 15:10) Hives oxycodone [From Percocet] Adverse Reaction (Intermediate, Verified 07/03/23 15:10) Hives HPI Comments Details: 48 y/o male patient presents for new in-person visit for sleep consultation. Pt reports loud snoring, and it has progressed. He gained more than 20 lb over the last couple of years. Pt reports non refreshing sleep, wakes up frequently in the middle of night. His tiredness has been increased, having more episode of dozing off. Pt's reports witnessed apnea, and disrupted breathing. Sleep questionnaire: Have you ever been diagnosed with a sleep disorder? No. Have you ever had a sleep study in the past? No. Have you ever been treated for a sleep disorder? No. Do you take medications for a sleep disorder? No. Do you snore? Yes. Do you wake up gasping at night? Yes. Do you have episodes of apneas? Yes. If yes, are they witnessed? Yes. Do you have episodes of nocturnal chest pain or dyspnea? Yes, sometimes. Do you have difficulty initiating sleep? Yes. Do you have difficulty maintaining sleep? No. Do you wake up tired? Yes. Do you have headaches upon awakening? Yes. Do you wake up with dry mouth or throat? Yes. Do you have GERD? Yes. Do you have nocturia? No. Do you have nocturnal leg cramps? Yes. Do you have symptoms of restless legs? Yes. Do you act out your dreams? No. Sleep hygiene questionnaire: What is your usual sleep routine? Usual bedtime is at 9-10 pm; Usual wake up time is at 4:30 am. Do you take naps? No. Is your sleep environment cool, dark, and quiet? Yes. Do you exercise? Not regularly. Do you take caffeine or other stimulants? Coffee all day, the last drink usually 4 pm. Do you use electronics in bed? Watches TV sometimes. What is your work schedule? 6 am to 2 pm. Hypersomnolence questionnaire: Do you have daytime tiredness or fatigue? Yes. Do you easily fall asleep when inactive? Yes. Have you ever had episodes of sudden weakness? No. Have you ever had episodes of sudden weakness associated with strong emotions? No. PFSH Medical History (Updated 07/03/23 @ 15:36 by Jazmyn Peraza CNP) Chronic headaches Lumbar degenerative disc disease Low back pain Upper respiratory tract infection Costochondritis Surgical History Hx of hernia repair Family History Maternal Grandmother Diabetes Breast cancer Social History Housing: House Alcohol intake: current Alcohol intake frequency: holidays/special occasions only Patient Tobacco Use Status: Never used Tobacco e-Cigarette/Vaping Use: Never Used service: Yes Current occupational status: employed Cognitive needs: No Hearing needs: No Vision needs: Yes Review of Systems Const All systems reviewed & are unremarkable except as noted in HPI and below Physical Exam Vital Signs: Last Vital Signs Pulse 98 07/03/23 15:11 BP 124/64 07/03/23 15:11 Pulse Ox 95 07/03/23 15:11 Oxygen Delivery Method Room Air 07/03/23 15:11 BMI result Body Mass Index 33.1 Const General: cooperative Nutritional Appearance: obese Orientation/consciousness: patient oriented x3 Neck Neck: Yes full ROM and Yes supple Resp Effort & Inspection: normal respiratory effort and able to speak in complete sentences Neuro General: patient oriented x3 and gait normal Cranial nerves: Yes CN's II-XII intact bilaterally Cognition (Neuro): normal cognition Gait exam (Neuro): Normal gait present Psych Appearance: grossly normal Mental Status: mental status grossly normal Speech and movement: Normal speech and movement present Affect: normal affect Attitude: cooperative Assessment & Plan Assessment & Plan (1) Loud snoring: Code(s): R06.83 - Snoring Category: Medical (2) Daytime sleepiness: Code(s): R40.0 - Somnolence Category: Medical Plan Pt is advised to undergo home sleep study to assess for sleep apnea. Will f/u with pt after study to discuss results and appropriate treatment options. Sleep hygiene education provided, limit electronic use before bedtime. Increase physical activities, having routine exercise. Wt reduction advised. Pt to call with any worsening concerns or questions. Orders: Orders RT home sleep study Today R06.83 - Snoring, R40.0 - Somnolence Coding Level of Care Code New Pt Level 3 (30613) Diagnoses Loud snoring R06.83 Daytime sleepiness R40.0
[2023-07-03 15:11] VITALS: BP 124/64; PULSE 98; O2SAT 95; BMI 33.1
== END 2023-07-03 15:37 | disposition home or self-care (01) ==
PROVIDERS: PCP Nurse Practitioner Primary Care; Referring Provider Nurse Practitioner Primary Care; Visit Provider Nurse Practitioner Family
DX: R06.83 Snoring (principal); R40.0 Somnolence
CPT/HCPCS: 99203; 99213

== ENCOUNTER → 2023-07-03 14:56 | Outpatient (BNVA) | payer OTHER, SELFPAY | PROVIDERS: PCP Nurse Practitioner Primary Care; Visit Provider Nurse Practitioner Family | DX: R06.83 Snoring (principal); R40.0 Somnolence | CPT/HCPCS: 99202 ==

== ENCOUNTER 2023-07-12 08:34 | Outpatient (AMB) | payer OTHER, SELFPAY ==
[2023-07-12 08:44] VITALS: BP 138/86; PULSE 93; TEMP 36.5; O2SAT 98; BMI 33.5
--- NOTE | 2023-07-12 08:44 | MHC.OFFWIV ---
Intake Vital Signs 07/12/23 08:44 Height 6 ft 1 in Weight 254 lb BMI 33.5 BP 138/86 Blood Pressure Location Lt brachial Position Sitting Pulse 93 Pulse Source Pulse Oximeter Temp 97.7 F Temp Source Temporal Artery Scan Pulse Oximetry (%) 98 Oxygen Delivery Method Room Air Intake Visit Reasons: EST/sinus pressure(lobby) Intake Note: pt is here today sinus pressure started saturday. He states he has pressure under his eyes and cheeks. He also states he has a bad sore throat. Patient Tobacco Use Status: Never used Tobacco Allergies acetaminophen [From Percocet] Adverse Reaction (Intermediate, Verified 07/12/23 08:52) Hives oxycodone [From Percocet] Adverse Reaction (Intermediate, Verified 07/12/23 08:52) Hives HPI HPI Comments History of Present Illness Details 48 y/o male patient who presents to walk in clinic with c/o sinus pressure and sore-throat since Saturday. PFSH Medical History Chronic headaches Lumbar degenerative disc disease Low back pain Upper respiratory tract infection Costochondritis Surgical History Hx of hernia repair Family History Maternal Grandmother Diabetes Breast cancer Social History Housing: House Alcohol intake: current Alcohol intake frequency: holidays/special occasions only Patient Tobacco Use Status: Never used Tobacco e-Cigarette/Vaping Use: Never Used service: Yes Current occupational status: employed Cognitive needs: No Hearing needs: No Vision needs: Yes Review of Systems Const All systems reviewed & are unremarkable except as noted in HPI and below Physical Exam Vital Signs: Last Vital Signs Temp 97.7 F 07/12/23 08:44 Pulse 93 07/12/23 08:44 BP 138/86 07/12/23 08:44 Pulse Ox 98 07/12/23 08:44 Oxygen Delivery Method Room Air 07/12/23 08:44 BMI result Body Mass Index 33.5 Const General: comfortable and no acute distress Orientation/consciousness: patient oriented x3 HEENT Head: Yes normocephalic Ears: external ears normal and TM abnormal bulging and with fluid behind the TM bilateral; not erythematous, not perforated and not retracted General nose exam: Abnormal mucous membranes and turbinates present boggy and erythematous Face and sinus: Yes sinus tenderness Mouth: moist mucous membranes Throat: Yes postnasal drainage Resp Effort & Inspection: normal respiratory effort and able to speak in complete sentences Auscultation: clear to auscultation bilaterally, no crackles, no rales, no rhonchi and no wheezes Cardio Rate: regular rate Rhythm: regular rhythm Neuro General: patient oriented x3 Results AMB Rapid Strep AMB Rapid Strep Negative Last Edit by Melissa Murcia CMA on 07/12/23 08:58 Results Reviewed Results Reviewed: Laboratory Last Values Strep Scn Rapid Clinic Negative 07/12/23 08:57 Assessment & Plan Assessment & Plan (1) Acute pharyngitis: Code(s): J02.9 - Acute pharyngitis, unspecified Qualifiers: Pharyngitis/tonsillitis etiology: unspecified etiology Qualified Code(s): J02.9 - Acute pharyngitis, unspecified Plan: - Home remedies - Rest and hydrate with warm fluids and honey (2) Acute rhinosinusitis: Code(s): J01.90 - Acute sinusitis, unspecified Plan: - Take medications as prescribed Orders: Orders AMB Rapid Strep Screen Today Z13.9 - Encounter for screening, unspecified Medications: New amoxicillin 500 mg PO BID 20 caps 0RF sinus infection 10 days J01.90 - Acute sinusitis, unspecified, J02.9 - Acute pharyngitis, unspecified oxymetazoline 0.05% (Afrin (oxymetazoline)) 2 sprays intranasal Q12H PRN 15 mL 0RF nasal congestion 3 days J01.90 - Acute sinusitis, unspecified naproxen-pseudoephedrine 220-120 mg ER (Sudafed Sinus 12Hr Pressure-Pain) 1 tab PO Q12H 30 tabs 0RF nasal congestion J01.90 - Acute sinusitis, unspecified Coding Level of Care Code New Pt Level 3 (69729) Diagnoses Acute pharyngitis, unspecified etiology J02.9 Pharyngitis/tonsillitis etiology: unspecified etiology Acute rhinosinusitis J01.90 Time Spent (min) 15
== END 2023-07-12 11:11 | disposition home or self-care (01) ==
PROVIDERS: PCP Nurse Practitioner Primary Care; Visit Provider Nurse Practitioner Family
DX: J02.9 Acute pharyngitis, unspecified (principal); J01.90 Acute sinusitis, unspecified
CPT/HCPCS: 87880; 99203; 99213

== ENCOUNTER 2023-08-09 11:07 | Day surgery (SDC) | payer OTHER, SELFPAY ==
--- NOTE | 2023-08-08 11:59 | P.CONAN_ITS ---
Documented by User: Aysha Valderrama NP 08/08/23 12:02 HPI - Anesthesia Eval Consult details Narrative: 48yo M for Bilateral L5-S1 Transforaminal Epidural Steroid Injection PMFSH Active Problems Active Problems: All Active Problems Daytime sleepiness (Acute) Loud snoring (Acute) Tingling of both feet (Acute) Anxiety (Acute) TMJ arthralgia (Acute) Snoring (Acute) Lumbosacral spondylosis (Acute) Low back pain (Acute) Lumbar degenerative disc disease (Acute) Cervical radiculopathy (Acute) Muscle spasm (Acute) Cervical spondylosis (Acute) Right hip pain (Acute) Lumbar radiculopathy (Acute) Pre-op examination (Acute) Acute sinusitis (Acute) Post-vaccination reaction (Acute) Back muscle spasm (Acute) Past Medical History Medical History Chronic headaches Lumbar degenerative disc disease Low back pain Upper respiratory tract infection Costochondritis Family History Family History Maternal Grandmother Diabetes Breast cancer Surgical History Surgical History Hx of hernia repair Social History Social History Housing: House Alcohol intake: current Alcohol intake frequency: holidays/special occasions only Patient Tobacco Use Status: Never used Tobacco e-Cigarette/Vaping Use: Never Used Use of substances other than those prescribed or required for medical reasons: No Are you DNR?: No Advance Directives: No Advance Directives Information Provided: Yes service: Yes Current occupational status: employed Cognitive needs: No Hearing needs: No Vision needs: Yes Meds Allergies Allergy/AdvReac Type Severity Reaction Status Date / Time acetaminophen [From Percocet] AdvReac Intermediate Hives Verified 07/12/23 08:52 oxycodone [From Percocet] AdvReac Intermediate Hives Verified 08/09/23 11:24 Home Medications ?Medication ?Instructions ?Recorded ?Confirmed ?Last Taken ?Type cholecalciferol (vitamin D3) 62.5 mcg PO 07/01/23 07/01/23 Unknown History mcg (2,500 unit) capsule Exam Pertinent Lab Results Pertinent Lab Results: Laboratory Tests 05/13/23 12:27 WBC 5.7 Hgb 14.2 Hct 39.3 L Plt Count 260 Sodium 139 Potassium 3.9 Chloride 102 Carbon Dioxide 27 BUN 13 Creatinine 1.16 Assessment and Plan Assessment Anesthesia Assessment: Chart Reviewed Documented by User: Ramesh Watters MD 08/09/23 11:54 [facility] Past Medical History Medical History Chronic headaches Lumbar degenerative disc disease Low back pain Upper respiratory tract infection Costochondritis Family History Family History Maternal Grandmother Diabetes Breast cancer Family history of problems with anesthesia: No Surgical History Surgical History Hx of hernia repair History of Problems with Anesthesia: No Social History Social History Housing: House Alcohol intake: current Alcohol intake frequency: holidays/special occasions only Patient Tobacco Use Status: Never used Tobacco e-Cigarette/Vaping Use: Never Used Use of substances other than those prescribed or required for medical reasons: No Are you DNR?: No Advance Directives: No Advance Directives Information Provided: Yes service: Yes Current occupational status: employed Cognitive needs: No Hearing needs: No Vision needs: Yes Meds Allergies Allergy/AdvReac Type Severity Reaction Status Date / Time acetaminophen [From Percocet] AdvReac Intermediate Hives Verified 07/12/23 08:52 oxycodone [From Percocet] AdvReac Intermediate Hives Verified 08/09/23 11:24 Home Medications ?Medication ?Instructions ?Recorded ?Confirmed ?Last Taken ?Type cholecalciferol (vitamin D3) 62.5 mcg PO 07/01/23 07/01/23 Unknown History mcg (2,500 unit) capsule Exam Airway Mallampati Class: II TM Dist: >3cm Neck ROM: Full Loose/Missing/Broken Teeth: No Heart: rrr Lungs: cta Assessment and Plan Assessment Anesthesia Assessment: Anesthesia Plan Discussed Final Anesthetic Review Family History of Problems with Anesthesia: No History of Problems with Anesthesia: No NPO: Yes ASA Class: II Final Preanesthetic Review: No Changes in Pt Med Stat, Meds/Allgs Chart Reviewed, Consent Obtained/Reviewed and Anes Risks/Benef Reviewed Patient Risk: Low Procedure Risk: Low Anesthetic Plan Anesthetic Plan: MAC: Disposition: Standard PACU
--- NOTE | ~2023-08-09 | FL_ITS ---
EXAMINATION: XR FLUOROSCOPY WITH IMAGES CLINICAL INFORMATION: Lumbar injection. COMPARISON: None available. TECHNIQUE: Fluoroscopy Supervised By: Dr. Jackson. Fluoroscopy Time: 51.3 seconds. Cumulative Dose: 22.374 mGy. DAP: 6.974 Gycm2. Images: 3. FINDINGS: Intraoperative fluoroscopy and spot films were performed during a procedure in the OR. Needle is present on both the left and the right in the lower lumbar spine with contrast seen in the epidural space. Exact location cannot be ascertained secondary to coning of the images Please see Dr. Jackson's report for complete details. FL/FL guidance in OR IMPRESSION: Intraoperative fluoroscopy and spot films were obtained. Please see Dr. Jackson's report for complete details.
[2023-08-09 11:28] VITALS: BP 145/81; PULSE 76; RESP 18; TEMP 36.3; O2SAT 96; BMI 33.6
[2023-08-09 11:29] VITALS: BMI 33.6
[2023-08-09] MEDS: Lactated Ringers 1,000 ML 100 ML IVCONT (11:48)
--- NOTE | 2023-08-09 12:05 | P.HPSUR_ITS ---
Pre-Procedural Eval Section A - 24 Hr Update-Section A only Date of Service: 08/09/23 The patient is an INPATIENT: No Changes since office visit: Yes Patient answered all questions The patient has been examined within 24 hours of the surgical procedure. The History & Physical has been completed within 30 days and I have reviewed it.: No Section B - Complete if H&P > 30 days Chief Complaint: Radiculopathy, lumbar region Details of Present Illness: As Above Relevant Family History (Specify if Yes): No Relevant Social History: None Present Medications: see Short Stay Collaborative assessment Medical History: No relevant PMH History of Previous Operations: No relevant previous surgery Allergies: Allergies Allergy/AdvReac Type Severity Reaction Status Date / Time acetaminophen [From Percocet] AdvReac Intermediate Hives Verified 07/12/23 08:52 oxycodone [From Percocet] AdvReac Intermediate Hives Verified 08/09/23 11:24 Review of Systems Sugical H&P ROS: Negative: Constitution, Cardiovascular, Respiratory, Neurological, Psychiatric, Hem-Onc, Allergic/Immunologic, Gastrointestinal, Genitourinary, Musculoskeletal, Integumentary, Endocrine and Eyes/Ears/N ose/Throat Exam Surgical H&P Exam: Normal: HEENT, Normal: Heart, Normal: Lungs, Normal: Extremities, Normal: Abdomen, Normal: Skin and Normal: Neurological Plan Diagnosis/Plan: Unchanged I have reviewed the history and physical and performed a pertinent physical examination on my patient. No changes have occurred unless specified. Time Spent With Patient Time: Total time managing care of this patient today ____ minutes.
[2023-08-09 13:22] VITALS: BP 130/75; PULSE 82; RESP 14; TEMP 36.3; O2SAT 96
--- NOTE | 2023-08-09 13:22 | PM.OP ---
Brief Operative Note Date of Service: 08/09/23 Pre-op diagnosis: Radiculopathy lumbosacral Post-op diagnosis: same Procedure: Bilateral transforaminal epidural steroid injection L5-S1 Surgeon: Shahab Jackson MD Anesthesia: MAC Was an Licensing Coordinator used for this Procedure?: No Estimated blood loss (mL): 0 Pathology: none sent Condition: stable Disposition: PACU
--- NOTE | 2023-08-09 13:23 | W.PM.OPN ---
Operative Note Operative Note Date of Service: 08/09/23 Narrative: Bilateral transforaminal epidural steroid injection L5-S1. Informed consent was explained to the patient risks and benefits explained, risks were delineated as bleeding infection peripheral nerve damage headache. The patient came to the operating room he was positioned prone on operating table [place] [employer] monitors were applied and patient was minimally sedated. Time-out was performed delineating correct side and site of the procedure name and date of of the patient and nature of the procedure. The lower back of the patient was prepped with ChloraPrep and draped with sterile utility towels. C-arm was brought over the operating field and sq picture of the patient's lower lumbar spine the upper pelvis was demonstrated on the screen. Sq picture of the L5 vertebra was delineated. Tilting machine ipsilateral to the right and to the left the most prominent image of the pedicle was obtained screen 1st on the right and then on the left. The projection of the lowest point of the pedicle to the screen was injected with small amount of lidocaine 1% and after that 22 gauge 5 in needle was driven toward the foramina on anterior posterior and oblique views. When tip of the needle entered the silhouette of the spinal canal on anterior posterior view injection of the contrast was performed demonstrating epidural and perineural spread of the contrast. After that 3 cc of the lidocaine mixed with Kenalog 40 mg was injected sequentially 1st to the right and after that to the left. No intrathecal and no intravascular spread of the contrast was observed. Patient did not report any paresthesia. Patient tolerated procedure well. Upon completion of both injections the needle was withdrawn sterile Band-Aids were applied. Patient was taken outside of the operating room to recovery room where he recovered uneventfully.
[2023-08-09 13:37] VITALS: BP 136/76; PULSE 86; RESP 18; TEMP 36.3; O2SAT 96
== END 2023-08-09 13:48 | disposition home or self-care (01) ==
PROVIDERS: PCP Nurse Practitioner Primary Care; Visit Provider Anesthesiology
PROC: 3E0R33Z Introduction of Anti-inflammatory into Spinal Canal, Percutaneous Approach (ICD-10-PCS; CPT 64483; principal; 2023-08-09 13:50)
DX: M54.16 Radiculopathy, lumbar region (principal); M51.36 Other intervertebral disc degeneration, lumbar region
CPT/HCPCS: 64483; J2250; J2405; J3010; J3301; Q9965

== ENCOUNTER → 2023-08-09 11:07 | Outpatient (BNV) | payer OTHER, SELFPAY | PROVIDERS: PCP Nurse Practitioner Primary Care; Visit Provider Anesthesiology | DX: M54.16 Radiculopathy, lumbar region (principal) | CPT/HCPCS: 64483 ==

== ENCOUNTER → 2023-08-13 08:50 | Outpatient (REF) | payer OTHER, SELFPAY | LOC: HO.SL 08:50 | PROVIDERS: PCP Nurse Practitioner Primary Care; Visit Provider Nurse Practitioner Family | DX: R06.83 Snoring (principal); R40.0 Somnolence | CPT/HCPCS: 95806 ==

== ENCOUNTER → 2023-08-13 08:58 | Outpatient (BNV) | payer OTHER, SELFPAY | PROVIDERS: PCP Nurse Practitioner Primary Care; Visit Provider Psychiatry & Neurology Neurology | DX: G47.33 Obstructive sleep apnea (adult) (pediatric) (principal) | CPT/HCPCS: 95806 ==

== ENCOUNTER 2023-09-12 14:00 | Outpatient (RCR) | payer OTHER, SELFPAY ==
--- NOTE | 2023-07-19 10:44 | MHC.PT.EP ---
[facility] [place] Office [place] Office [place] Office [address] [phone] F: [phone] F: [phone] F: [phone] F: [phone] Physical Therapy Plan of Care Date of Evaluation: 07/19/23 Date of Surgery: Diagnosis: other intervertebral disc degeneration Assessment: Patient is a 48 year old R handed male who presents with s/s consistent with low back pain, other intervertebral disc degeneration. 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 Patient past medical history includes hernia surgery and history of lumbar disc pathology. Current impairments include pain, flexibility, posture, ROM, strength, activity tolerance and functional mobility. 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 Patient is motivated with good rehab potential. Skilled PT will address impairments and functional limitations in order to achieve goals. 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 Manual therapy to restore motion and function. Therapeutic exercise to improve strength and flexibility. Neuromuscular re-education for posture and balance. Therapeutic activities to return to functional activities of daily living. Electronically signed by: Enmanuel Baltazar PT Please sign and return to therapist. Thank you for your referral.
--- NOTE | 2023-12-12 11:47 | MHC.PT.DC ---
[facility] [place] Office [place] Office [place] Office [address] Ginny Lopez [address] [phone] F: [phone] F: [phone] F: [phone] F: [phone] Physical Therapy Discharge Report Diagnosis: other intervertebral disc degeneration Date of Surgery: Date of Evaluation: 07/19/23 Date of Discharge: 10/13/23 Treatments to Date: 13 Cancellations to Date: No Shows to Date: Discharge Status: Achieved Goals Independent with HEP Discharge Summary: 09/12/23: pt was motivated and compliant throughout the course of skilled PT. he was able to perform all asked of him and he did experience progress in flexibility and pain. However, he was not able to meet all goals. Oswestry 56%. I with HEP. AROM rotation 75%. 90/90 lacking 34 b/l. Still with pain wearing weighted vest. He is I with updated HEP and is appropriate to d/c to HEP at this time. 09/10/23: pt progressing back from exacerbation last visit. he does have good grasp of HEP and self maintenance. continue to taper to d/c. 08/29/23: pt in significantly more pain today. held on ex with measures down only to manage s/s. assess response next visit. 08/27/23: responding well and feeling better overall today. continue to progress until d/c 08/19/23: we held some core stab and focused on stretching as pt presented with acute muscle strain to c-spine. we will progress NV. 08/14; Pt omero exs without c/o pain. Challenged with Bosu squats from weakness and balance. 08/13/23: progressed core stab and spent less time on stretching. seemingly good response to shot on Saturday. he is compliant with HEP and seems to have more s/s still with raking/shoveling activities. 08/08/23: pt with increased s/s since the last few days. we held and added pain management interventions. assess response and progress as tolerated. Pt is progressing well with skilled PT, making improvements on impairments and functional limitations. He does still have impairments and functional limitations including tissue tension, pain, flexilibility/muscle tightness, strength/weakness, posture and body mechanics. He is a good candidate to continue skilled PT to address impairments and functional limitations in order to achieve optimal function and quality of life with minimal pain and excellent pain management techniques. We will continue 2 x /week for 3 more weeks then plan to d/c to updated HEP. 08/05; Pt stated he felt a little better after exs and SNAG. R PVM's visible elevated muscles due to spasm. 08/01/23: discussed plan to transition to gym. we will plan PF workout plan next visit. 07/30/23: pt progressing well still. good carryover. progress core stab each visit. issued updated HEP. 07/25/23: pt progressing well with skilled PT. good carryover. progressed core stab today without adverse reactions. 07/22/23: pt progressing well with skilled PT. we did add stretching intervention. he had intermittent s/s down into L LE. this resolved with change of position and exercise. Patient is a 48 year old R handed male who presents with s/s consistent with low back pain, other intervertebral disc degeneration. 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 Patient past medical history includes hernia surgery and history of lumbar disc pathology. Current impairments include pain, flexibility, posture, ROM, strength, activity tolerance and functional mobility. 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 Patient is motivated with good rehab potential. Skilled PT will address impairments and functional limitations in order to achieve goals. Electronically signed by: Enmanuel Baltazar, PT Please sign and return to therapist. Thank you for your referral.
== END 2023-12-12 11:47 | disposition home or self-care (01) ==
LOC: HO.PTCHIC 14:00
PROVIDERS: PCP Nurse Practitioner Primary Care; Visit Provider Physician Assistant
DX: M51.36 Other intervertebral disc degeneration, lumbar region (principal)
CPT/HCPCS: 97014; 97110; 97140; 97162

== ENCOUNTER 2023-09-13 08:42 | Outpatient (AMB) | payer OTHER, SELFPAY ==
--- NOTE | 2023-09-13 08:48 | A.OFFVIS_ITS ---
Vital Signs 09/13/23 08:52 Height 6 ft Weight 243 lb BMI 33.0 BP 133/69 Blood Pressure Location Rt brachial Position Sitting Pulse 88 Pulse Source Pulse Oximeter Pulse Oximetry (%) 99 Oxygen Delivery Method Room Air Intake Visit Reasons: S/p B/l Lumbar TFESI 08/09/23 Intake Note: Pain today 5/10 Spectral Scientist Required: No Accompanied by: Self / Same As Patient Allergies acetaminophen [From Percocet] Adverse Reaction (Intermediate, Verified 09/13/23 08:53) Hives oxycodone [From Percocet] Adverse Reaction (Intermediate, Verified 09/13/23 08:53) Hives Do you need a note to return to daycare/school/sports/work: Yes Return to daycare/school/sports/work/other note: work HPI Comments Details: Patient presents today to assess response to Bilateral transforaminal epidural steroid injection L5-S1 on 08/09/[address] Jackson. Patient reports 100% pain relief in his back and leg pain for only 3 days after procedure, than symptoms returned to baseline. 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 Patient reports he attempted to wear armored vest as well as carry a rifle and a gun which required in his work line of duty and developed immediate back and right leg pain at 8/10. His max pain during work ranges 5-8/10. He is interested to trial acupuncture and follow up with [facility] for surgical re-evaluation. Denies any recent cough, cold, infection, fever, any significant changes in his medical history, medications or recent hospitalizations. Past Procedures: 08/09/23: Bilateral transforaminal epidural steroid injection L5-S1-100% pain relief for 2-3 days PRIOR: Patient is pleasant 47 years old male with prior history of central disc protrusion or disc bulge at C5-C6, left paramedian disc herniation L5-S1, lumbar degenerative disc disease and lumbosacral back pain, presents today for initial evaluation of neck, right hip, and lower back pain with radicular symptoms. 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 He does have a history of herniated disk at that time at L5-S1 which recovered to some degree with conservative treatments. Currently his back pain is axial and also radiates into his lower bilateral extremities posteriorly with numbness and tingling in his feet, cramping in calves and heavy sensation in both legs, worse in right leg. 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 At the end of the day, this causes him significant debilitating neck through lower back pain. Given significant lower back pain with radicular symptoms, he is not able to restart formal physical therapy. Patient also reports recent development of right hip pain without any inciting events. Pain extends to his right anterior thigh and groin. Walking and weight bearing increases his groin pain and his right leg has gave out few times. Pain is rated at 6-7/10 today and can easily get to 8/10 during mornings and sleep. Pain affects his daily activities, functioning, sleep and quality of life. Denies previous spine surgery. The back pain is function and mobility limiting and has been resistant to conservative treatments. Pain also increases with sneezing and coughing. Denies any bladder or bowel dysfunction or saddle anesthesia. Location Lower back radiates down bilateral legs, neck pain w/ radiation to thoracic Duration Chronic pain since 2005 Characteristics of symptom or complaint Aching, shooting, numbness, cramping, burning, tingling, radiating, tight Aggravating or associated factors Bending, forward flexion, prolonged standing, running, lifting weights Relieving factors Lidocaine patch, Aleeve, Meloxicam, Cyclobenzaprine, activity modifications Treatment PT- no improvement 5+ years ago at [facility], home exercise program [facility] Medical History Chronic headaches Lumbar degenerative disc disease Low back pain Upper respiratory tract infection Costochondritis Surgical History Hx of hernia repair Family History Maternal Grandmother Diabetes Breast cancer Social History Housing: House Alcohol intake: current Alcohol intake frequency: holidays/special occasions only Patient Tobacco Use Status: Never used Tobacco e-Cigarette/Vaping Use: Never Used service: Yes Current occupational status: employed Cognitive needs: No Hearing needs: No Vision needs: Yes Review of Systems Const All systems reviewed & are unremarkable except as noted in HPI and below Physical Exam Vital Signs: Last Vital Signs Pulse 88 09/13/23 08:52 BP 133/69 09/13/23 08:52 Pulse Ox 99 09/13/23 08:52 Oxygen Delivery Method Room Air 09/13/23 08:52 BMI result Body Mass Index 33.0 General: Appears afebrile. Alert and oriented. Mood and affect appropriate. Follows and participates in conversation appropriately. Respiratory effort is unlabored. No cough. Able to transition from sit to stand unassisted. Ambulates with bilaterally normal heel strike and toe off, increased pain on the right with toe standing/walking. Neck Neck: Yes normal visual inspection, Yes no lymphadenopathy, Yes supple, No anterior neck swelling, Yes no JVD and Yes prominent dorsocervical fat pad Back/Spine/Pelvis Other: Limited lumbar ROM due to pain. Demonstrates 5/5 left and 4/5 right (due to pain )strength of quadriceps bilaterally as well as flexion/dorsiflexion of bilateral feet against resistance. 2+ pedal pulses bilaterally. +2 left +1 right patellar and +1 achilles reflexes bilaterally. Facet loading test positive bilaterally. Jose?s and Stinchfield tests are negative bilaterally. Cervical Spine: cervical ROM normal, cervical muscular tenderness, pain with cervical ROM, cervical spasm and No Cervical spine tenderness Thoracic/Lumbar Spine: thoracic and lumbar spine normal to inspection, No Thoracic/lumbar spine scar(s), Lasegue's sign negative, straight leg raise negative bilaterally, pain with thoraco-lumbar ROM, paraspinal muscle tenderness, thoraco-lumbar ROM limited, No thoracic spinal tenderness and lumbar spinal tenderness (L4-S1) Pelvis: buttock tenderness on the right and sciatic notch tenderness on the right Sacroiliac joints: bilaterally (mild) tender to palpation Results Reviewed Results Reviewed: MR SPINE LUMBAR without CONTRAST 04/13/23 at [facility] INDICATION: Lower back pain radiating to the thoracic spine and bilateral lower extremities with numbness, weakness, and tingling. TECHNIQUE: Unenhanced multiplanar, multisequence MR imaging of the lumbar spine. COMPARISON: None available. FINDINGS: There is mild degenerative retrolisthesis of L5 on S1. Mild loss of intervert ebral disc space height and normal T2 hyperintensity of the L5-S1 disc material. The remaining intervertebral disc spaces are maintained. Lower lumbar facet arthrosis. There is no acute paraspinal abnormality identified. Conus and cauda equina of normal appearance. The conus tip L1-L2. Examination through the L1-L2, L2-L3, L3-L4 and L4-L5 intervertebral levels without central stenosis or significant foraminal narrowing. Examination through the L5-S1 intervertebral level revealing a small LEFT posterior lateral disc osteophyte. Mild degenerative retrolisthesis. There is no significant central stenosis. There is mild LEFT lateral recess encroachment. No significant foraminal narrowing. IMPRESSION: Mild loss of intervertebral disc space height and desiccation of the disc material at L5-S1 with a small LEFT posterior lateral disc osteophyte. Mild degenerative retrolisthesis. There is no significant central stenosis. There is mild LEFT lateral recess encroachment. No significant foraminal narrowing. The remaining intervertebral levels without central stenosis or foraminal narrowing. MR CERVICAL SPINE WITHOUT CONTRAST 05/16/23 at [facility] INDICATION: Neck pain, cervical radiculopathy TECHNIQUE: Standard protocol without contrast COMPARISON: None. FINDINGS: Vertebral bodies demonstrate normal height and signal intensity. Craniocervical junction is preserved. There is homogeneous signal within the cervical cord. There is mild degeneration of the disc spaces from C4 through C7 levels. C1-C3: No significant abnormalities are seen. C3-C4 level shows small right paracentral disc protrusion, contacting the ventral aspect of the cord without compression. Mild narrowing of the canal is seen. The foramina are patent. C4-C5 level shows shallow central disc protrusion, abutting the ventral aspect of the thecal sac. Mild narrowing of the canal is seen. The foramina are patent. At C5-C6 level, there is shallow left paracentral disc protrusion, slightly indenting the ventral cord with flattening. Mild to moderate narrowing of the canal is seen. The disc has mildly degenerated. There is moderate left and mild right-sided foraminal stenosis due to uncovertebral hypertrophy. C6-C7 level shows small left paracentral disc protrusion, indenting the ventral aspect of the thecal sac without compression. Mild narrowing of the canal is seen. There is mild foraminal stenosis due to uncovertebral spurring. C7-T1 level shows disc bulge and mild facet arthropathy. The canal and foramina are preserved. IMPRESSION: Multilevel changes of cervical spondylosis, multilevel small cervical disc protrusions, abutting the thecal sac and resulting in mild to moderate narrowing of the canal and foramina, as detailed at individual levels above. Assessment & Plan Assessment & Plan (1) Low back pain: Comment: L5-S1 bilateral TFESI-100% pain relief for 2-3 days. Patient will continue to perform light duty at work which he states has been helping his symptoms follow up with [facility] for re-evaluation. Patient has been educated on signs of worsening symptoms and when to report to the office or when to report to the emergency room. Code(s): M54.50 - Low back pain, unspecified Category: Medical Qualifiers: Chronicity: acute Back pain laterality: bilateral Sciatica presence: with sciatica Sciatica laterality: bilateral sciatica Qualified Code(s): M54 .42 - Lumbago with sciatica, left side; M54.41 - Lumbago with sciatica, right side (2) Lumbar degenerative disc disease: Code(s): M51.36 - Other intervertebral disc degeneration, lumbar region Category: Medical (3) Lumbar radiculopathy: Code(s): M54.16 - Radiculopathy, lumbar region Category: Medical (4) Lumbosacral spondylosis: Code(s): M47.817 - Spondylosis without myelopathy or radiculopathy, lumbosacral region Category: Medical (5) Right hip pain: Code(s): M25.551 - Pain in right hip Category: Medical (6) Cervical spondylosis: Code(s): M47.812 - Spondylosis without myelopathy or radiculopathy, cervical region Category: Medical (7) Muscle spasm: Code(s): M62.838 - Other muscle spasm Category: Medical (8) Cervical radiculopathy: Code(s): M54.12 - Radiculopathy, cervical region Category: Medical Plan Patient is status post bilateral L5-S1 TFESI with 100% pain relief for 3 days only. Plan to proceed with Neurosurgical re-evaluation at [facility]. Continue methocarbamol, lidocaine patches, Tylenol, NSAIDs as needed, ice/heat therapy, Zynex for TENS unit for neck and lower back pain. Work note provided to patient. He is recommended to continue light duty with restrictions of no lifting greater than 5 lbs. No frequent lifting, bending, pushing or pulling greater than 5 lbs. Referral provided for Acupuncture therapy with contact information. All questions and concerns have been answered and patient agreed with the plan. Follow up as needed. Orders: Referrals Acupuncture Referral M47.817 - Spondylosis without myelopathy or radiculopathy, lumbosacral region, M51.36 - Other intervertebral disc degeneration, lumbar region, M54.16 - Radiculopathy, lumbar region, M54.41 - Lumbago with sciatica, right side, M54.42 - Lumbago with sciatica, left side Coding Level of Care Code Est Pt Level 4 (29569) Diagnoses Acute bilateral low back pain with bilateral sciatica M54.42; M54.41 Chronicity: acute Back pain laterality: bilateral Sciatica presence: with sciatica Sciatica laterality: bilateral sciatica Lumbar degenerative disc disease M51.36 Lumbar radiculopathy M54.16 Lumbosacral spondylosis M47.817 Right hip pain M25.551 Cervical spondylosis M47.812 Muscle spasm M62.838 Cervical radiculopathy M54.12
[2023-09-13 08:52] VITALS: BP 133/69; PULSE 88; O2SAT 99; BMI 33.0
== END 2023-09-13 09:19 | disposition home or self-care (01) ==
PROVIDERS: PCP Nurse Practitioner Primary Care; Visit Provider Nurse Practitioner Family
DX: M25.551 Pain in right hip (principal); M47.812 Spondylosis without myelopathy or radiculopathy, cervical region; M62.838 Other muscle spasm; M54.12 Radiculopathy, cervical region
CPT/HCPCS: 99214

== ENCOUNTER → 2023-09-13 08:42 | Outpatient (BNVA) | payer OTHER, SELFPAY | PROVIDERS: PCP Nurse Practitioner Primary Care; Visit Provider Nurse Practitioner Family | DX: M54.42 Lumbago with sciatica, left side (principal); M54.41 Lumbago with sciatica, right side; M51.36 Other intervertebral disc degeneration, lumbar region; M54.16 Radiculopathy, lumbar region; M47.817 Spondylosis without myelopathy or radiculopathy, lumbosacral region; M25.551 Pain in right hip; M47.812 Spondylosis without myelopathy or radiculopathy, cervical region; M62.838 Other muscle spasm; M54.12 Radiculopathy, cervical region | CPT/HCPCS: 99212 ==

== ENCOUNTER 2023-12-10 10:02 | Outpatient (REF) | payer OTHER, SELFPAY ==
[2023-12-10 14:21] LABS: Influenza A PCR NEGATIVE (Negative); Influenza B PCR NEGATIVE (Negative); Resp Syncy Virus RNA Qual PCR NEGATIVE (Negative); SARS COV2 PCR INHOUSE POSITIVE (Negative)
== END 2023-12-10 10:03 | disposition home or self-care (01) ==
LOC: HO.LAB 10:02
PROVIDERS: PCP Nurse Practitioner Primary Care; Visit Provider Physician Assistant
DX: J06.9 Acute upper respiratory infection, unspecified (principal); J01.01 Acute recurrent maxillary sinusitis
CPT/HCPCS: 0241U; 99212

== ENCOUNTER 2023-12-10 10:02 | Outpatient (AMB) | payer OTHER, SELFPAY ==
--- NOTE | 2023-12-10 10:43 | AM.OFFWIN_ITS ---
Intake Vital Signs 12/10/23 10:45 Height 6 ft Weight 240 lb BMI 32.5 BP 138/90 H Blood Pressure Location Lt brachial Position Sitting Pulse 96 Pulse Source Pulse Oximeter Temp 98.7 F Temp Source Oral Pulse Oximetry (%) 99 Oxygen Delivery Method Room Air Intake Visit Reasons: EP ? cold Intake Note: Patient here for headache, cough, congestion and loss of appetite. Patient Tobacco Use Status: Never used Tobacco Allergies acetaminophen [From Percocet] Adverse Reaction (Intermediate, Verified 12/10/23 10:46) Hives oxycodone [From Percocet] Adverse Reaction (Intermediate, Verified 12/10/23 10:46) Hives Do you need a note to return to daycare/school/sports/work: Yes HPI HPI Comments History of Present Illness Details Patient is a 48-year-old male complaining of 2 days of a sore throat, headache above his eyes, a dry cough that sometimes does produce brown sputum, head congestion, sinus pain and a reduced appetite secondary to nausea. He states he can not sleep and last night he was having alternating fever and chills but did not take a measured temperature. He denies any history of asthma or COPD. He denies any sick contacts and states he did not test for COVID. He states he has been taking Tylenol, DayQuil and NyQuil with no relief in symptoms. [facility] Medical History Chronic headaches Lumbar degenerative disc disease Low back pain Upper respiratory tract infection Costochondritis Surgical History Hx of hernia repair Family History Maternal Grandmother Diabetes Breast cancer Social History Housing: House Alcohol intake: current Alcohol intake frequency: holidays/special occasions only Patient Tobacco Use Status: Never used Tobacco e-Cigarette/Vaping Use: Never Used service: Yes Current occupational status: employed Cognitive needs: No Hearing needs: No Vision needs: Yes Review of Systems Const All systems reviewed & are unremarkable except as noted in HPI and below Physical Exam Vital Signs: Last Vital Signs Temp 98.7 F 12/10/23 10:45 Pulse 96 12/10/23 10:45 BP 138/90 H 12/10/23 10:45 Pulse Ox 99 12/10/23 10:45 Oxygen Delivery Method Room Air 12/10/23 10:45 BMI result Body Mass Index 32.5 Const General: cooperative, healthy appearing, comfortable and no acute distress Orientation/consciousness: patient oriented x3 Limitations: no limitations HEENT Head: Yes normal to inspection Ears: hearing grossly normal bilaterally, external ears normal and TM's normal bilaterally General nose exam: Normal external nose present, Normal nares present and No nasal discharge present Face and sinus: Yes normal facial exam and Yes sinus tenderness (Maxillary and frontal bilaterally) Mouth: Normal oral and palatal mucosa present and moist mucous membranes Throat: Yes tonsils normal, Yes uvula midline and Yes posterior oropharynx abnormal (Erythema) Eyes General: appearance normal, both eyes and all related structures Neck Neck: Yes normal visual inspection Resp Effort & Inspection: normal respiratory effort, able to speak in complete sentences, no respiratory distress, not tachypneic, no tripod positioning and no use of accessory muscles Auscultation: clear to auscultation bilaterally Cardio Rate: regular rate Rhythm: regular rhythm Heart sounds: normal S1 and S2 Skin General skin exam: no rashes or lesions noted Neuro General: patient oriented x3 Extrem General: Yes normal to inspection and Yes no clubbing, cyanosis or edema Assessment & Plan Assessment & Plan (1) Upper respiratory tract infection: Code(s): J06.9 - Acute upper respiratory infection, unspecified Qualifiers: URI type: unspecified viral URI Qualified Code(s): J06.9 - Acute upper respiratory infection, unspecified Plan: Sent flu COVID and RSV, see below as well (2) Sinusitis, acute frontal: Code(s): J01.10 - Acute frontal sinusitis, unspecified Qualifiers: Recurrence: non-recurrent Qualified Code(s): J01.10 - Acute frontal sinusitis, unspecified Plan: Recommended patient use Flonase, a Neti pot with distilled water and I will send 20 mg of prednisone to be taken daily for 5 days. Also recommended he increase his fluids as it looks like he is getting a little bit dehydrated. Plan See above Orders: Orders 2 SARS-CoV2/FLU/RSV Today J06.9 - Acute upper respiratory infection, unspecified Medications: New prednisone 20 mg PO DAILY 5 tabs 0RF Coding Level of Care Code Est Pt Level 3 (15497) Diagnoses Viral upper respiratory tract infection J06.9 URI type: unspecified viral URI Acute non-recurrent frontal sinusitis J01.10 Recurrence: non-recurrent
[2023-12-10 10:45] VITALS: BP 138/90; PULSE 96; TEMP 37.1; O2SAT 99; BMI 32.5
== END 2023-12-10 11:21 | disposition home or self-care (01) ==
PROVIDERS: PCP Nurse Practitioner Primary Care; Visit Provider Physician Assistant
DX: J06.9 Acute upper respiratory infection, unspecified (principal); J01.10 Acute frontal sinusitis, unspecified

== ENCOUNTER 2024-03-05 13:27 | Outpatient (AMB) | payer OTHER, SELFPAY ==
--- NOTE | 2024-03-05 13:36 | A.OFFVIS_ITS ---
Vital Signs 03/05/24 13:37 Height 6 ft Weight 247 lb BMI 33.5 BP 126/78 Blood Pressure Location Rt brachial Position Sitting Pulse 82 Pulse Source Pulse Oximeter Pulse Oximetry (%) 96 Oxygen Delivery Method Room Air Intake Visit Reasons: 7 month F/U Clinical Data Programmer Required: No Accompanied by: Self / Same As Patient Allergies acetaminophen [From Percocet] Adverse Reaction (Intermediate, Verified 03/05/24 13:40) Hives oxycodone [From Percocet] Adverse Reaction (Intermediate, Verified 03/05/24 13:40) Hives Do you need a note to return to daycare/school/sports/work: No HPI Comments Details: 48-yr-old male presents for follow-up visit following home sleep study. Since the last visit, on 08/13/2023, patient underwent HST, results of which were consistent with moderate obstructive sleep apnea w/ AHI 15.5/hour, O2 lesli 85% with SpO2 < 90% for 6 minute of study time, and under 88% for 0.8 minutes of study time, and average SpO2 93%, 134 total snoring episodes accounting for 28% of study time. Patient was advised to start APAP 5-20 cm H2O. He did receive that APAP machine from [facility], however he has not started to use it as he thought he needed to have this appointment today 1st. He is concerned that he may have difficulty tolerating the APAP machine, as he is not sure he will be able to tolerate wearing a mask. He is curious if he can use the APAP while using his oral mouth guard (for bruxism). 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 He does not operate heavy equipment or machinery, and does not undergo DOT evaluations. [facility] Medical History Upper respiratory tract infection Chronic headaches Lumbar degenerative disc disease Low back pain Costochondritis Surgical History Hx of hernia repair Family History Maternal Grandmother Diabetes Breast cancer Social History Housing: House Alcohol intake: current Alcohol intake frequency: holidays/special occasions only Patient Tobacco Use Status: Never used Tobacco e-Cigarette/Vaping Use: Never Used service: Yes Current occupational status: employed Cognitive needs: No Hearing needs: No Vision needs: Yes Physical Exam Vital Signs: Last Vital Signs Pulse 82 03/05/24 13:37 BP 126/78 03/05/24 13:37 Pulse Ox 96 03/05/24 13:37 Oxygen Delivery Method Room Air 03/05/24 13:37 BMI result Body Mass Index 33.5 Const General: no acute distress Orientation/consciousness: patient oriented x3 Resp Effort & Inspection: normal respiratory effort and able to speak in complete sentences Neuro General: patient oriented x3 Psych Mental Status: mental status grossly normal Speech and movement: Clear speech present Attitude: cooperative Assessment & Plan Assessment & Plan (1) Moderate obstructive sleep apnea: Comment: 08/13/2023, HST: AHI 15.5/hour, O2 lesli 85% with SpO2 < 90% for 6 minute of study time, and under 88% for 0.8 minutes of study time, and average SpO2 93%, 134 total snoring episodes accounting for 28% of study time. Code(s): G47.33 - Obstructive sleep apnea (adult) (pediatric) Category: Medical (2) TMJ arthralgia: Code(s): M26.629 - Arthralgia of temporomandibular joint, unspecified side Category: Medical Qualifiers: Laterality: bilateral Qualified Code(s): M26.623 - Arthralgia of bilateral temporomandibular joint (3) Anxiety: Comment: Patient is meeting with community navigator to discuss establishing care for therapist. Code(s): F41.9 - Anxiety disorder, unspecified Category: Medical Plan Reviewed results of sleep study report, results c/w sleep apnea. Discussed complications a/w untreated MADIHA, including but not limited to CV, metabolic, and cognitive dysfunction. Thus, pt advised to start PAP tx. Start APAP 5-20 cmH2O nightly > 4 hours, however as patient has anxieties regarding sleeping with APAP on, he is advised to try Pap therapy acclimaion techniques, such as wearing PAP mask by itself while relaxing and watching TV, then when this is tolerated start wearing PAP mask and tubing in the evening while relaxing, and and then can slowly increase Pap application until patient is able to tolerate using APAP while machine is running. He may use his mouth guard while using APAP tx. Use distilled water in Pap water reservoir. Clean CPAP machine and supplies routinely. Change CPAP supplies routinely. If patient does not tolerate APAP therapy, other treatment options include weight loss, mandibular device, ENT evaluation, inspire implantation. Pt to contact us or respiratory company with any questions or concerns. Pt to follow-up in 6 months or sooner prn. Coding Level of Care Code Est Pt Level 3 (92430) Diagnoses Moderate obstructive sleep apnea G47.33 Bilateral temporomandibular joint pain M26.623 Laterality: bilateral Anxiety F41.9
[2024-03-05 13:37] VITALS: BP 126/78; PULSE 82; O2SAT 96; BMI 33.5
--- OUTSIDE RECORDS SUMMARY | 2024-03-05 14:37 | XMS_ITS ---
Author Organization [facility] Address [address] [place] [address] Care Team Providers Care Charging Manipulator Name Role Phone Juan J Booker Primary Care Provider Nate Bailey Unavailable [phone] Allergies No Known Allergies Medications Medication SIG (Take, Route, Frequency, Duration) Notes Start Date End Date Status Naftin 2 % 1 application Keg Varnisher ally Once a day for 30 days Active Nabumetone 750 MG 1 tablet Orally ONCE A DAY WITH FOOD for 30 day(s) 11/13/2023 Active Custom Orthotics as directed 10/10/2023 Active Physical Therapy . . . 2-3x/week for 3-4 weeks Active Night Splint AFO - L1930 as directed 10/10/2023 Active Social History Tobacco Use: Social History Observation Description Date Details (start date - stop date) Never Smoker NA - NA Tobacco Use/Smoking Question Answer Notes Are you a: nonsmoker Additional Findings: Tobacco Non-User Current no n-smoker Alcohol Screen Question Answer Notes Did you have a drink containing alcohol in the p ast year? No Points 0 Interpretation Negative Tobacco use other than smoking: Question Answer Notes Are you an other tobacco user? No Problems Problem Type SNOMED Code ICD Code Onset Dates Problem Status W/U Status Risk Notes Problem Plantar fascial fibromatosis (53692996) Plantar fascial fibromatosis (M72.2) Active confirmed Vital Signs Height 6ft in 12/17/2023 Weight 230 lbs 12/17/2023 BMI 31.19 kg/m2 12/17/2023 Encounters Encounter Location Date Provider Diagnosis [facility] [place] [address] [address] 12/17/2023 Nate Xie Plantar fascial fibromatosis M72.2 ; Tinea pedis B35.3 ; Pain in left foot M79.672 ; Pain in right foot M79.671 and Anterior camacho splints S86.899B Assessments Encounter Date Diagnosis (ICD Code) Assessment Notes Treatment Notes Treatment Clinical Notes Section Notes 12/17/2023 Plantar fascial fibromatosis (ICD-10 - M72.2) 12/17/2023 Tinea pedis (ICD-10 - B35.3) 12/17/2023 Pain in left foot (ICD-10 - M79.672) 12/17/2023 Pain in right foot (ICD-10 - M79.671) 12/17/2023 Anterior camacho splints (ICD-10 - S86.894W) Plan Of Treatment Medication Medication Name Sig Start Date Stop Date Notes Naftin 2 % 1 application Keg Varnisher ally Once a day for 30 days Physical Therapy . . . 2-3x/week for 3-4 weeks Next Appt Details Follow Up: prn, Reason: Progress Notes * True MACIAS RDOB:1975 (48 yo M)Acc No.[id number]:12/17/2023 Progress Notes Patient:?True Macias Provider:?Nate Xie DPM :1975???Age:48 Y???Sex:Male Breezy e:12/17/2023 Address:[address] [place], [place] [id number] Pcp:Juan J Booker Subjective: * Chief Complaints: * ??? 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 * ROS:?General/Constitutional:?Nausea?denies.?Vomiting?denies.?Hunger Thirst?denies.?Loss appetite?denies.?Chills?denies.?Fatigue?denies.?Fever?denies.?Night Sweats?denies.?Unexplained weight loss?denies.?Unexplained weight gain?denies.?HEENTM:?Dentures?denies.?Dizziness?denies.?Glasses/contacts?admits.?Retinopathy?de nies.?Blurred/double vision?denies.?TMJ?denies.?Discharge/drainage?denies.?Implants?denies.?Sore throat?denies.?Dental implants?denies.?Hard of hearing ?denies.?Difficulty chewing/swallowing/speaking?denies.?Nose bleeds?denies.?Sore mouth?denies.?Respiratory:?On Oxygen?denies.?Pneumonia/pleurisy?denies.?Bronchitis?denies.?Emphysema?denies.?C oughing?denies.?Cough blood?denies.?Shortness of breath?denies.?Wheezing?denies.?Cardiovascular:?Pacemaker?denies.?MVP?denies.?WPW?denies.?CHF?denies.?Heart attack?denies.?Septal defect?denies.?Rapid beat?denies.?Chest pain ?denies.?Atrial Fib.?denies.?Murmur/Palpitations?denies.?Gastrointestinal:?Hemorrhoids?denies.?Stomach/Abdominal pain?denies.?Dark blood stool?denies.?Irritable bowel ?denies.?Constipation?denies.?Diarrhea?denies.?Hematology:?Swelling?admits.?Clots?denies.?Varicose Veins?denies.?Bruising?denies.?Bleeding problem?denies.?Genitourinary:?Blood urine?denies.?Frequent/Painfu/urination/bladder control?denies.?Kidney stones?denies.?Infection (UTI)?denies.?Nephropathy?denies.?sex trans dis (STD)?denies.?Prostate?denies.?Musculoskeletal:?Hammertoes?denies.?Bunions?denies.?Back Pain?denies.?Muscle Cramps/ Resting?denies.?Muscle cramps / walking?denies.?Generalized aches and pains?denies.?Weakness?denies.?Integ.:?Johnson?denies.?Scars?denies.?Corns/calluses?denies.?Ingrown nails?denies.?Painful nails?admits.?Open Sores?denies.?Rashes?denies.?Neurologic:?Difficulty sleeping?denies.?Brain disorder?denies.?Numbness?admits.?Balance trouble?denies.?Confusion?denies.?Fainting/blackouts?denies.?Tingling?admits.?Tr emors?denies.? * Medical History:? * Surgical History:?hernia 2002 * Hospitalization/Major Diagno stic Procedure:?No Hospitalization History. * Family History:?Mother: aliv e.?Father: alive.? * Social History:?Tobacco Use:?Tobacco Use/Smoking?Are you a:?nonsmoker ?Additional Findings: Tobacco Non-User?Current non-smoker ?Tobacco use other than smoking?Are you an other tobacco user??No ???Drugs/Alcohol:?Drugs?Have you used drugs other than those for medical reasons in the past 12 months??No ?Alcohol Screen?Did you have a drink containing alcohol in the past year??No ?Points?0 ?Interpretation?Negative ???Miscellaneous:?Caffeine: yes, frequency:, 2-3 cups per day. ?Children: yes. ?Exercise: yes. ?Marital status: . 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 * Medications:?TakingNight Spl int AFO - L1930 as directed Custom Orthotics as directed Naftin 2 % Gel 1 application Externally Once a dayPhysical Therapy . . . . 2-3x/weekNabumetone 750 MG Tablet 1 tablet Orally ONCE A DAY WITH FOODMedication List reviewed and reconciled with the patientTaking Night Splint AFO - L1930 as directed Taking Custom Orthotics as directed Taking Naftin 2 % Gel 1 application Externally Once a dayTaking Physical Therapy . . . . 2-3x/weekTaking Nabumetone 750 MG Tablet 1 tablet Orally ONCE A DAY WITH FOODMedication List reviewed and reconciled with the patient * Allergies:?N.K.D.A.yes[Aller gies Verified] Objective: * Vitals:?Ht: 6ft, Wt:230, BMI :31.19, Shoe size: 10.5, Ht-cm: 182.88 cm, Wt-k.33 kg. * Examination: ???General Examination: ?GENERAL APPEARANCE:?pleasant, alert, well nourished, well developed, well hydrated, with good attention to hygene/body habitus, and in no acute distress.?ORIENTED:?person,place, and time.?Neurological: ?SENSORY:?Neurological exam reveals intact sensorium, pain sensation normal, vibration sensation intact, pinprick sensation is normal in the lower extremities, pt denies, anesthesia, burning, paresthesia, tingling, B/L.?TINEL'S COMPRESSION:?Negative tarsal tunnel, woodrow pedis, and medial calcaneal nerves, B/L.?BABINSKI REFLEX:?Absent, B/L.?Vascular: ?DP PULSES(B):?2/4, B/L.?PT PULSES(B):?2/4, B/L.?CAPILLARY FILL TIME:?3 secs. per digit, B/L.?TROPHIC CONDITION-TEXTURE/ELASTICITY/TURGOR/HAIR GROWTH(B):?normal, B/L.?TEMPERTURE GRADIENT(C):?warm to cool, proximal to distal, B/L.?EDEMA(C):?no edema.?Dermatologic: ?SKIN FINDINGS:? Skin shows sign(s) of, erythema, scaling, in a moccasin fashion, no fissure(s) present, B/L.?Heel Pain: ?INSPECTION REVEALS:?Mild Pain on Palpation to Plantar Fascia med. and central bands, intrinsic musc., infra-calcaneal bursa, and med calc tubercle, B/L with fibroma left midfoot; NO?pop of midseciton of pf roberta.?Orthopedic: ?MUSCLE STRENGTH:?5/5 all groups in a symmetrical fashion B/L.?GAIT ABNORMALITY:?pronated, abducted, B/L.? Assessment: * Assessment: 1.?Plantar fascial fibromato sis - M72.2 (Primary)?2.?Tinea pedis - B35.3?3.?Pain in left foot - M79.672?4.?Pain in right foot - M79.671?5.?Anterior camacho splints - S86.899A? Plan: * Treatment: 2.?Tinea pedis? Start Naftin Gel, 2 %, 1 application, Externally, Once a day, 30 days, 60, Refills 6.?? * Procedure Codes:? * Preventive Medicine:? ??Counseling:?Discussion:?-14: Office or other outpatient visit for the evaluation and management of an established patient, which required a medically appropriate history and/or examination and MODERATE level of DECISION MAKING for: 1 OR MORE CHRONIC PROBLEM(S) THATS WORSENING, 2 STABLE CHRONIC PROBLEMS, A NEWLY DIAGNOSED PROBLEM WITH UNCERTAIN PROGNOSIS, AN ACUTE COMPLICATED INJURY WITH MULTIPLE TREATMENT OPTIONS, OR AN ACUTE PROBLEM WITH ACCOMPANYING SYSTEMIC SYMPTOMS, THAT POSE(S) A MODERATE RISK OF MORBIDITY. THIS CONDITION MAY ALSO INCLUDE RX DRUG MANAGEMENT, OR A DECISON FOR MINOR SURGERY. The visit on the day of the encounter encompassed interpreting the data and educating the patient as to the nature of their condition, treatment options available according to their individual PMH, meds, allergies, and overall health/living conditions, as well as any potential risks or complications that may occur from a failure to adhere to, and participate in, the recommended course of therapy. The discussion included a complete verbal, and/or written explanation of the examination results, any x-rays taken, the proposed diagnosis, and outline of the treatment plan. A schedule for future care needs was also explained. The patient verbalized an understanding of the instructions at this time and agreed to be an active participant in their treatment. If the patient should think of any questions or concerns after the visit, I have encouraged the patient to call the office.? * Follow Up:?prn * Images: * Sign off status: Completed true * Provider:?Nate Xie DPM Date:? 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 and central bands, intrinsic musc., infra-calcaneal bursa, and med calc tubercle, B/L with fibroma left midfoot; NO pop of midseciton of pf roberta Neurological SENSORY: Neurological exa m reveals intact sensorium, pain sensation normal, vibration sensation intact, pinprick sensation is normal in the lower extremities, pt denies, anesthesia, burning, paresthesia, tingling, B/L BABINSKI REFLEX: Absent, B/L TINEL'S COMPRESSION: Negative tarsal petty zabrina, woodrow pedis, and medial calcaneal nerves, B/L Dermatologic SKIN FINDINGS: Skin shows sign( s) of, erythema, scaling, in a moccasin fashion, no fissure(s) present, B/L Orthopedic GAIT ABNORMALITY: pronated, abducted, B/L MUSCLE STRENGTH: 5/5 all groups in a symmetrical fashion B/L General Examination GENERAL APPEARANCE: pleasant , alert, well nourished, well developed, well hydrated, with good attention to hygene/body habitus, and in no acute distress ORIENTED: person,place, and ti me Vascular DP PULSES (B): 2/4, B/L PT PULSES (B): 2/4, B/L CAPILLARY FILL TIME: 3 secs. per digit, B/L TEMPERTURE GRADIENT (C): warm to cool, p roximal to distal, B/L TROPHIC CONDITION-TEXTURE/ELASTICITY/TURGOR/HAIR GROWTH (B): normal, B/L EDEMA (C): no edema
--- OUTSIDE RECORDS SUMMARY | 2024-03-05 14:38 | XMS_ITS | Continuity of Care Document ---
Author Name [facility] Organization [facility] Care Team Providers Care Director Of Strategic Partnerships Name Role Phone [facility] Unavailable Unavailable Immunizations Combined list of available immunizations from the Department of Defense and Veterans Affairs facilities. Immunization Series Date Given Administered By Site Reaction Lot Number CVX Code Drug Track Repairer Status Comments Source SARS-COV-2 (COVID-19) vaccine, mRNA, spike protein, LNP, preservative free, 100 mcg or 50 mcg dose 2 2020 Unknown, Provider [id number] [employer] (MOD) complet ed SARS-COV- 2 (COVID-19 ) vaccine, mRNA, spike protein, LNP, preservat janet free, 100 mcg or 50 mcg dose DoD SARS-COV-2 (COVID-19) vaccine, mRNA, spike protein, LNP, preservative free, 100 mcg or 50 mcg dose 1 2020 Unknown, Provider [id number] 207 [employer] (MOD) complet ed SARS-COV- 2 (COVID-19 ) vaccine, mRNA, spike protein, LNP, preservat janet free, 100 mcg or 50 mcg dose DoD Influenza, injectable, quadrivalent, preservative free 1 2017 Unknown, Provider 150 (MVX) complet ed Influenza , injectabl e, quadrival ent, preservat janet free DoD Influenza, seasonal, injectable, preservative free 1 2016 Unknown, Provider [id number] 140 [employer] (SEQ) complet ed Influenza , seasonal, injectabl e, preservat janet free DoD Influenza, seasonal, injectable 1 2015 Unknown, Provider [id number] 141 [employer] (SKB) complet ed Influenza , seasonal, injectabl e DoD influenza, injectable, quadrivalent, preservative free 2014 WOOD, () Not Given influenza , injectabl e, quadrival ent, preservat janet free DoD Influenza, seasonal, injectable 1 2014 Unknown, Provider [id number] 141 [employer] (SKB) complet ed Influenza , seasonal, injectabl e DoD Influenza, seasonal, injectable, preservative free 1 2013 Unknown, Provider [id number] 140 [facility] ([facility]) complet ed Influenza , seasonal, injectabl e, preservat janet free DoD Influenza, seasonal, injectable, preservative free 1 2012 Unknown, Provider 140 (MVX) complet ed Influenza , seasonal, injectabl e, preservat janet free DoD Influenza, seasonal, injectable 1 2012 Unknown, Provider [id number] 141 [facility] [employer] (CSL) complet ed Influenza , seasonal, injectabl e DoD tetanus toxoid, reduced diphtheria toxoid, and acellular pertu is vaccine, adsorbed 1 2011 Unknown, Provider [id number] 115 [facility] ([facility]) complet ed tetanus toxoid, reduced diphtheri a toxoid, and acellular pertussis vaccine, adsorbed DoD Influenza, seasonal, injectable, preservative free 15 2011 Unknown, Provider [id number] 140 [facility] [employer] (CSL) complet ed Influenza , seasonal, injectabl e, preservat janet free DoD Influenza, seasonal, injectable 1 2010 Unknown, Provider 141 [employer] (NOV) complet ed Influenza , seasonal, injectabl e DoD influenza virus vaccine, live, attenuated, for intranasal use 1 2009 Unknown, Provider [id number] 111 [employer] (MED) complet ed influenza virus vaccine, live, attenuate d, for intranasa l use [facility] Novel influenza-H1N 1-09, injectable 1 2009 Unknown, Provider [id number] 127 [employer] (NOV) complet ed Novel influenza -[id number], injectabl e DoD influenza virus vaccine, live, attenuated, for intranasal use 1 2008 Unknown, Provider [id number] 111 [employer] (MED) complet ed influenza virus vaccine, live, attenuate d, for intranasa l use [facility] typhoid Vi capsular polysaccharid e vaccine 1 2008 Unknown, Provider [id number] 101 Sanofi Pasteur ([facility]) complet ed typhoid Vi capsular polysacch aride vaccine DoD influenza virus vaccine, split virus (incl. purified surface antigen)-reti red CODE 1 2007 Unknown, Provider [id number] 15 [facility] ([facility]) complet ed influenza virus vaccine, split virus (incl. purified surface antigen)- retired CODE DoD influenza virus vaccine, split virus (incl. purified surface antigen)-reti red CODE 1 2006 Unknown, Provider [id number] 15 [facility] ([facility]) complet ed influenza virus vaccine, split virus (incl. purified surface antigen)- retired CODE DoD typhoid vaccine, parenteral, other than acetone-kille d, dried 1 2006 Unknown, Provider [id number] Sanofi Pasteur ([facility]) complet ed typhoid vaccine, parentera l, other than acetone-k illed, dried DoD influenza virus vaccine, split virus (incl. purified surface antigen)-reti red CODE 1 2005 Unknown, Provider [id number] 15 Other (OT) complet ed influenza virus vaccine, split virus (incl. purified surface antigen)- retired CODE DoD tetanus and diphtheria toxoids, adsorbed, preservative free, for adult use (2 Lf of tetanus toxoid and 2 Lf of diphtheria toxoid) 1 2004 Unknown, Provider [id number] 09 Sanofi Pasteur ([facility]) complet ed tetanus and diphtheri a toxoids, adsorbed, preservat janet free, for adult use (2 Lf of tetanus toxoid and 2 Lf of diphtheri a toxoid) DoD influenza virus vaccine, split virus (incl. purified surface antigen)-reti red CODE 1 2004 Unknown, Provider [id number] 15 Sanofi Pasteur ([facility]) complet ed influenza virus vaccine, split virus (incl. purified surface antigen)- retired CODE DoD typhoid vaccine, parenteral, other than acetone-kille d, dried 1 2004 Unknown, Provider [id number] 41 Sanofi Pasteur ([facility]) complet ed typhoid vaccine, parentera l, other than acetone-k illed, dried DoD tuberculin skin test; purified protein derivative solution, intradermal 1 2003 Unknown, Provider [id number] 96 Sanofi Pasteur ([facility]) complet ed tuberculi n skin test; purified protein derivativ e solution, intraderm al [facility] influenza virus vaccine, whole virus 1 2002 Unknown, Provider [id number] 16 [employer] (PW) complet ed influenza virus vaccine, whole virus DoD influenza virus vaccine, whole virus 1 2002 Unknown, Provider [id number] 16 [employer] (PW) complet ed influenza virus vaccine, whole virus DoD typhoid vaccine, parenteral, other than acetone-kille d, dried 1 2001 Unknown, Provider [id number] 41 Sanofi Pasteur ([facility]) complet ed typhoid vaccine, parentera l, other than acetone-k illed, dried DoD influenza virus vaccine, whole virus 1 2001 Unknown, Provider [id number] 16 Sanofi Pasteur ([facility]) complet ed influenza virus vaccine, whole virus DoD tuberculin skin test; purified protein derivative solution, intradermal 1 2001 Unknown, Provider [id number] 96 Sanofi Pasteur ([facility]) complet ed tuberculi n skin test; purified protein derivativ e solution, intraderm al DoD hepatitis B vaccine, adult dosage 3 2001 Unknown, Provider [id number] 43 Merck (MSD) complet ed hepatitis B vaccine, adult dosage DoD tuberculin skin test; purified protein derivative solution, intradermal 1 2001 Unknown, Provider [id number] 96 Sanofi Pasteur ([facility]) complet ed tuberculi n skin test; purified protein derivativ e solution, intraderm al DoD influenza virus vaccine, whole virus 1 2000 Unknown, Provider [id number] 16 Sanofi Pasteur ([facility]) complet ed influenza virus vaccine, whole virus DoD hepatitis B vaccine, adult dosage 2 2000 Unknown, Provider [id number] Merck (MSD) complet ed hepatitis B vaccine, adult dosage DoD hepatitis A vaccine, adult dosage 2 2000 Unknown, Provider [id number] Merck (MSD) complet ed hepatitis A vaccine, adult dosage DoD influenza virus vaccine, whole virus 2 1999 Unknown, Provider [id number] 16 [employer] (ZEHRA) complet ed influenza virus vaccine, whole virus DoD meningococcal polysaccharid e vaccine (MPSV4) 1 1999 Unknown, Provider 32 () complet ed meningoco ccal polysacch aride vaccine (MPSV4) DoD typhoid vaccine, parenteral, other than acetone-kille d, dried 1 1999 Unknown, Provider [id number] 41 [facility] ([facility]ELA) complet ed typhoid vaccine, parentera l, other than acetone-k illed, dried DoD hepatitis B vaccine, adult dosage 1 1999 Unknown, Provider [id number] 43 Merck (MSD) complet ed hepatitis B vaccine, adult dosage DoD hepatitis A vaccine, adult dosage 1 1999 Unknown, Provider [id number] Merck (MSD) complet ed hepatitis A vaccine, adult dosage DoD typhoid vaccine, parenteral, acetone-kille d, dried ([place] ) 1 1997 Unknown, Provider 53 () complet ed typhoid vaccine, parentera l, acetone-k illed, dried ([place] ) DoD tetanus and diphtheria toxoids, adsorbed, preservative free, for adult use (2 Lf of tetanus toxoid and 2 Lf of diphtheria toxoid) 1 1994 Unknown, Provider 09 () complet ed tetanus and diphtheri a toxoids, adsorbed, preservat janet free, for adult use (2 Lf of tetanus toxoid and 2 Lf of diphtheri a toxoid) [facility] influenza virus vaccine, whole virus 1 1994 Unknown, Provider 16 () complet ed influenza virus vaccine, whole virus DoD trivalent poliovirus vaccine, live, oral 3 1994 Unknown, Provider 02 () complet ed trivalent polioviru s vaccine, live, oral DoD measles, mumps and rubella virus vaccine 1 1994 Unknown, Provider 03 () complet ed measles, mumps and rubella virus vaccine DoD meningococcal polysaccharid e vaccine (MPSV4) 1994 Unknown, Provider 32 () complet ed meningoco ccal polysacch aride vaccine (MPSV4) DoD yellow fever vaccine 1 1994 Unknown, Provider 37 () complet ed yellow fever vaccine [facility] Social History Combined list of available smoking, tobacco, and other social history from Department of Defense and Veterans Affairs facilities. Social History Type Response Date Comment Sour e This section is an empty social history section. [facility]
--- OUTSIDE RECORDS SUMMARY | 2024-03-05 14:38 | XMS_ITS | Patient Health Record ---
Author Organization [facility] Address [address] [place] [address] Care Team Providers Care Hazardous Substances Engineer Name Role Phone Juan J Booker Primary Care Provider Nate Bailey Unavailable [phone] Allergies No Known Allergies Reason For Referral Diagnosis 1 Pain in unspecified foot (M79.673) Referring Provider First Name Marina Sam Referring Provider Last Name Fransico Referring Provider Speciality Internal [facility] Provider Merissa Duggan Referred Address [address] [place],[address], Referred Provider Specialty Podiatry Referral Priority Routine Diagnosis 1 Pain in unspecified foot (M79.673) Referring Provider First Name Marina Sam Referring Provider Last Name Fransico Referring Provider [facility] Referred Provider Nate Xie Referred Address [address] [place] [place],[address], Referred Provider Specialty Podiatry Referral Priority Routine Medications Medication SIG (Take, Route, Frequency, Duration) Notes Start Date End Date Status Naftin 2 % 1 application Estimate Clerk ally Once a day for 30 days [...] Status Risk Notes Problem Plantar fascial fibromatosis (70931685) Plantar fascial fibromatosis (M72.2) Active confirmed Vital Signs Height 6ft in 12/17/2023 Weight 230 lbs 12/17/2023 BMI 31.19 kg/m2 12/17/2023 Encounters Encounter Location Date Provider Diagnosis [address] [address] 10/10/2023 Nate Xie Plantar fascial fibromatosis M72.2 ; Tinea pedis B35.3 ; Pain in left foot M79.672 and Pain in right foot M79.[address] [address] 11/13/2023 Nate Xie Plantar fascial fibromatosis M72.2 ; Tinea pedis B35.3 ; Pain in left foot M79.672 and Pain in right foot M79.671 [facility] [address] [address] 12/17/2023 Nate Xie Plantar fascial fibromatosis M72.2 ; Tinea pedis B35.3 ; Pain in left foot M79.672 ; Pain in right foot M79.671 and Anterior camacho splints S86.899A [address] [address] 10/10/2023 Nate Xie [address] [address] 10/10/2023 Nate Xie [address] [address] 12/05/2023 Nate Xie Assessments Encounter Date Diagnosis (ICD Code) Assessment Notes Treatment Notes Treatment Clinical Notes Section Notes 10/10/2023 Plantar fascial fibromatosis (ICD-10 - M72.2) Patient Educated with: HEEL CORD STRETCHES.pdf (HEEL CORD STRETCHES.pdf) Patient Educated with: RICE THERAPY.pdf (RICE THERAPY.pdf) 10/10/2023 Tinea pedis (ICD-10 - B35.3) 11/13/2023 Plantar fascial fibromatosis (ICD-10 - M72.2) 11/13/2023 Tinea pedis (ICD-10 - B35.3) 12/17/2023 Plantar fascial fibromatosis (ICD-10 - M72.2) 12/17/2023 Tinea pedis (ICD-10 - B35.3) 12/17/2023 Pain in left foot (ICD-10 - M79.672) 10/10/2023 Pain in left foot (ICD-10 - M79.672) 11/13/2023 Pain in left foot (ICD-10 - M79.672) 12/17/2023 Pain in right foot (ICD-10 - M79.671) 11/13/2023 Pain in right foot (ICD-10 - M79.671) 10/10/2023 Pain in right foot (ICD-10 - M79.671) 12/17/2023 Anterior camacho splints (ICD-10 - S86.899A) Plan Of Treatment Pending Test Test Name Order Date X ray : Foot, left 3V 10/10/2023 X ray : Foot, right 3V 10/10/2023 Insurance Providers Payer Name Payer Address Payer Phone Subscriber Number Group Number Insured Name Patient Relationship to Insured Coverage Start Date Coverage End Date [facility] [address] [place] [address] [id number] True Winkler Self - patient is the insured Medical (General) History Medical History History ICD Code Anxiety Back,Hip,and Knee pain Depression Surgical History Surgery Date(Month/Year) hernia 07/2002
--- OUTSIDE RECORDS SUMMARY | 2024-03-05 14:38 | XMS_ITS ---
Author Organization [facility] Address [address] [place] [address] Care Team Providers Care Locket Maker Name Role Phone Juan J Booker Primary Care Provider Nate Bailey [phone] Allergies No Known Allergies Medications Medication SIG (Take, Route, Frequency, Duration) Notes Start Date End Date Status Naftin 2 % 1 application Dye House Wheel Operator ally Once a day for 30 days Active Physical Therapy . . . 2-3x/week for 3-4 weeks 01/2024 Active Nabumetone 750 MG 1 tablet Orally ONCE A DAY WITH FOOD for 30 day(s) 11/13/2023 Active Night Splint AFO - L1930 as directed 10/10/2023 Active Custom Orthotics as directed 10/10/2023 Active Social History Tobacco [...] Are you an other tobacco user? No Vital Signs Height 6ft in 11/13/2023 Weight 230 lbs 11/13/2023 BMI 31.19 kg/m2 11/13/2023 Encounters Encounter Location Date Provider Diagnosis [facility] [address] [place] [address] 11/13/2023 Nate Xie Plantar fascial fibromatosis M72.2 ; Tinea pedis B35.3 ; Pain in left foot M79.672 and Pain in right foot M79.671 Assessments Encounter Date Diagnosis (ICD Code) Assessment Notes Treatment Notes Treatment Clinical Notes Section Notes 11/13/2023 Plantar fascial fibromatosis (ICD-10 - M72.2) 11/13/2023 Tinea pedis (ICD-10 - B35.3) 11/13/2023 Pain in left foot (ICD-10 - M79.672) 11/13/2023 Pain in right foot (ICD-10 - M79.671) Plan Of Treatment Medication Medication Name Sig Start Date Stop Date Notes Naftin 2 % 1 application Dye House Wheel Operator ally Once a day for 30 days Physical Therapy . . . 2-3x/week for 3-4 weeks 11/13/2023 Nabumetone 750 MG 1 tablet Orally ONCE A DAY WITH FOOD for 30 day(s) 11/13/2023 Next Appt Details Follow Up: 6 Weeks, Reason: Progress Notes * True MACIAS RDOB:1975 (48 yo M)Acc No.[id number]:11/13/2023 Progress Notes Patient:?True MACIAS Provider:?Nate Xie DPM :1975???Age:48 Y???Sex:Male Breezy e:11/13/2023 Address:[address] [place] [address] [place] Pcp:Juan J Booker Subjective: * Chief Complaints: * ??? 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 * ROS:?General/Constitutional:?Nausea?denies, denies.?Vomiting?denies, denies.?Hunger Thirst?denies, denies.?Loss appetite?denies, denies.?Chills?denies, denies.?Fatigue?denies, denies.?Fever?denies, denies.?Night Sweats denies, denies.?Unexplained weight loss?denies, denies.?Unexplained weight gain?denies.?Ophthalmologic:?Blurred vision?denies.?Red eye?denies.?HEENTM:?Dentures?denies, denies.?Dizziness?denies, denies.?Glasses/contacts?admits, denies.?Retinopathy?denies, denies.?Blurred/double vision?denies, denies.?TMJ?denies, denies.?Discharge/drainage?denies, denies.?Implants?denies, denies.?Sore throat?denies.?Dental implants?denies.?Hard of hearing ?denies, denies.?Difficulty chewing/swallowing/speaking?denies, denies.?Nose bleeds?denies, denies.?Sore mouth?denies, denies.?Swollen glands?denies.?Respiratory:?On Oxygen?denies, denies.?Pneumonia/pleurisy?denies, denies.?Bronchitis?denies, denies.?Emphysema?denies, denies.?Coughing?denies, denies.?Cough blood?denies, denies.?Shortness of breath?denies, denies.?Wheezing?denies, denies.?Cardiovascular:?Pacemaker?denies, denies.?MVP?denies, denies.?WPW?denies, denies.?CHF?denies, denies.?Heart attack?denies, denies.?Septal defect?denies, denies.?Rapid beat?denies, denies.?Chest pain ?denies, denies.?Atrial Fib.?denies, denies.?Murmur/Palpitations?denies, denies.?Gastrointestinal:?Hemorrhoids?denies, denies.?Stomach/Abdominal pain?denies, denies.?Dark blood stool?denies, denies.?Irritable bowel ?denies, denies.?Constipation?denies, denies.?Diarrhea?denies, denies.?Vomiting?denies.?Hematology:?Swelling?admits, denies.?Clots?denies.?Varicose Veins?denies.?Bruising?denies, denies.?Bleeding problem?denies, denies.?Genitourinary:?Blood urine?denies, denies.?Frequent/Painfu/urination/bladder control?denies, denies.?Kidney stones?denies, denies.?Infection (UTI)?denies, denies.?Nephropathy?denies, denies.?sex trans dis (STD)?denies.?Prostate?denies.?Musculoskeletal:?Hammertoes?denies, denies.?Bunions?denies, denies.?Scoliosis/kyphosis?denies.?Back Pain?denies.?Muscle Cramps/ Resting?denies.?Muscle cramps / walking?denies, denies.?Generalized aches and pains?denies, denies.?Weakness?denies, denies.?Integ.:?Johnson?denies, denies.?Scars?denies, denies.?Corns/calluses?denies, denies.?Ingrown nails?denies, denies.?Painful nails?admits, denies.?Open Sores?denies.?Rashes?denies, denies.?Neurologic:?Difficulty sleeping?denies, denies.?Bipolar?denies.?Brain disorder?denies, denies.?Numbness?admits.?Balance trouble?denies, denies.?Confusion?denies, denies.?Fainting/blackouts?denies, denies.?Headache?denies.?Tingling?admits.?Tremors?denies, denies.? * Medical History:? * Surgical History:?hernia 2002 * Hospitalization/Major Diagno stic Procedure:?Denies Past Hospitalization * Family History:?Mother: mine koenig?Father: alive.? * Social History:?Tobacco Use:?Tobacco Use/Smoking?Are you [...] yes. ?Exercise: yes. ?Marital status: . 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 * Medications:?TakingNaftin 2 % Gel 1 application Externally Once a day Night Splint AFO - L1930 as directed Custom Orthotics as directed Medication List reviewed and reconciled with the patientTaking Naftin 2 % Gel 1 application Externally Once a day Taking Night Splint AFO - L1930 as directed Taking Custom Orthotics as directed Medication List reviewed and reconciled with the patient * Allergies:?N.K.D.A.yes[Aller gies Verified] Objective: * Vitals:?Ht: 6ft, Wt:230, BMI :31.19, Shoe size:10.5. * Examination: ???General Examination: ?GENERAL APPEARANCE:?pleasant, alert, [...] medial calcaneal nerves, B/L.?BABINSKI REFLEX:?Absent, B/L.?Vascular: ?DP PULSES (B):?2/4, B/L.?PT PULSES (B):?2/4, B/L.?CAPILLARY FILL TIME:?3 secs. per digit, B/L.?TROPHIC CONDITION-TEXTURE/ELASTICITY/TURGOR/HAIR GROWTH (B):?normal, B/L.?TEMPERTURE GRADIENT (C):?warm to cool, proximal to distal, B/L.?EDEMA (C):?no edema.?Dermatologic: ?SKIN FINDINGS:? Skin shows sign(s) of, erythema, scaling, in a moccasin fashion, no fissure(s) present, B/L.?Heel Pain: ?INSPECTION REVEALS:?Pain on Palpation to Plantar Fascia med. and central bands, intrinsic musc., infra-calcaneal bursa, and med calc tubercle, B/L with fibroma left midfoot; pop of midseciton of pf roberta.?Orthopedic: ?MUSCLE STRENGTH:?5/5 all groups in a symmetrical fashion B/L.?GAIT ABNORMALITY:?pronated, abducted, B/L.? Assessment: * Assessment: 1.?Plantar fascial fibromato sis - M72.2 (Primary)???2.?Tinea pedis - B35.3???3.?Pain in left foot - M79.672???4.?Pain in right foot - M79.671??? Plan: * Treatment: 2.?Tinea pedis? Start Naftin [...] have encouraged the patient to call the office; pt to start PT and oral nsaid; pt to purchase afo darco splint from [facility] and combine with ice tx.? * Follow Up:?6 Weeks * Images: * Sign off status: Completed true * Provider:?Nate Xie DPM Date:? 024 Generated for Kai mckeon/Vishal/Gwen on:?03/05/2024 02:37 PM EST History and Physical Notes * HPI (History of Present Illness) Category Sub-Category Detail Notes Category Not es Heel pain Duration: several years Nature: numbness, aching, te nderness Severity/Quality: States 8 out of 10 Location: Proximal plantar asp ect of Heel, plantar, Arch, B/L Onset/Cause: long hours as [employer] for several years Aggravated: any pressure, walkin g, standing Course: unchanged, unresolve d Treatments: change in shoes, ort hoses--no improvement Skin problems Nature: dryness, itching Location: B/L , Forefoot, Midf oot, Heel/Rearfoot Duration: a year or more Treatments: pt finally recieved naftin---it was on back order Examination Category Sub-Category Detail Notes Category Not es Heel Pain INSPECTION REVEALS: Pain on Palp ation to Plantar Fascia med. and central bands, intrinsic musc., infra-calcaneal bursa, and med calc tubercle, B/L with fibroma left midfoot; pop of midseciton of pf roberta Neurological [...]
--- OUTSIDE RECORDS SUMMARY | 2024-03-05 14:38 | XMS_ITS ---
Author Organization [facility] Address [address] [facility] [place] [address] Care Team Providers Care General Accountant Name Role Phone MichaelurieldeneenJuan J hernandez Primary Care Provider Nate Bailey [phone] REASON FOR VISIT PT referral Encounters Encounter Location Date Provider Diagnosis [facility] [address] [place] [address] 12/05/2023 Nate Xie Plan Of Treatment No Information Progress Notes * True MACIAS RDOB:1975 (48 yo M)Acc No.[id number]:12/05/2023 Patient:?True Macias :1975???Age:48 Y???Sex:Male [address] [place], [address] * true * Date:? Generated for Printi ng/Falesterg/eTransmitting on:?03/05/2024 02:37 PM EST
== END 2024-03-05 14:24 | disposition home or self-care (01) ==
PROVIDERS: PCP Nurse Practitioner Primary Care; Visit Provider Nurse Practitioner Family
DX: G47.33 Obstructive sleep apnea (adult) (pediatric) (principal); M26.623 Arthralgia of bilateral temporomandibular joint; F41.9 Anxiety disorder, unspecified
CPT/HCPCS: 99213

== ENCOUNTER → 2024-03-05 13:27 | Outpatient (BNVA) | payer OTHER, SELFPAY | PROVIDERS: PCP Nurse Practitioner Primary Care; Visit Provider Nurse Practitioner Family | DX: G47.33 Obstructive sleep apnea (adult) (pediatric) (principal); M26.623 Arthralgia of bilateral temporomandibular joint; F41.9 Anxiety disorder, unspecified | CPT/HCPCS: 99212 ==

== ENCOUNTER 2024-07-08 14:55 | Outpatient (AMB) | payer OTHER, SELFPAY ==
[2024-07-08 15:02] VITALS: BP 130/78; PULSE 91; O2SAT 97; BMI 33.6
--- NOTE | 2024-07-08 15:02 | A.OFFPC_ITS ---
Vital Signs 07/08/24 15:02 Height 6 ft Weight 248 lb BMI 33.6 BP 130/78 Blood Pressure Location Lt brachial Position Sitting Pulse 91 Pulse Source Pulse Oximeter Pulse Oximetry (%) 97 Oxygen Delivery Method Room Air Intake Visit Reasons: transfer of care/from [facility] Accompanied by: Self / Same As Patient Allergies acetaminophen [From Percocet] Adverse Reaction (Intermediate, Verified 07/08/24 15:02) Hives oxycodone [From Percocet] Adverse Reaction (Intermediate, Verified 07/08/24 15:02) Hives Medication List - Last Reconciled 07/08/24 by MAI Haney No Known Home Meds Tobacco use date assessed: 07/08/24 Dental Screening Dental Screen Date: 07/08/24 Did you have a dental visit in the last 12 months?: Yes Did you have a dental problem in the last 6 months where you did not have access to dental care?: No Was dental information given to patient?: Patient has dentist HPI transfer of care/from [facility] HPI Details History of Present Illness The patient is a 49-year-old male presenting with the primary reason being a physical exam and follow-up regarding a colon screening referral. 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 He reports experiencing intermittent migraines and chronic back pain, with ineffective relief from previous cortisone injections. Hip pain is also a concern, warranting potential further intervention. The patient has also indicated a connection with the [place] for ongoing care as well. He denies any acute systemic symptoms such as fevers, chills, gastrointestinal issues, or disturbances in vision. There is a noteworthy absence of suicidal or homicidal ideations, despite having a therapist for mental health. He recently retired after 24 years in service and expresses interest in moving to [place]. Health Maintenance - Referral for colonoscopy screening to be initiated. - Encouraged to maintain a diary for david deyanira occurrences, [facility] - Recommended a dental follow-up for red luation of current mouthguard wear and replacement. - Continued management with [facility] for appli cable health concerns. 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 - Plans to relocate to [place] wit h his . - Engages in [facility] with the [facility]. Review of Systems - HEENT: Denies visual disturbances. - Musculoskeletal: Reports chronic back and hip pain. - Neurological: Reports migraines. - Gastrointestinal: Denies abdominal brenna n, blood in stool, constipation, or di arrhea. - General: Denies fevers or chills. - Psychiatric: Denies suicidal or homici dustin ideation. Physical Exam General: Cooperative, healthy appearing, comfortable, no acute distress and well developed Orientation: Patient oriented x3 Limitations: No limitations Head: Normal to inspection Ears: Hearing grossly normal bilaterally Nose: Normal external nose present Face and sinus: Normal facial exam Eyes: Appearance normal, both eyes and all related structures Neck: Normal visual inspection and Yes full ROM Respiratory: Normal respiratory effort and able to speak in complete sentences. Clear to auscultation bilaterally Cardiovascular: Regular rate and rhythm. Normal S1 and S2 GI: Normal to inspection. Soft to palpation and nontender, small umbilical hernia Skin: No rashes or lesions noted Neuro: Patient oriented x3, cn2-12 intact Extremities: Normal to inspection Results Plan I will initiate a referral for colonoscopy screening to ensure completion following administrative oversight. For TMJ symptoms and sleep apnea, a dental evaluation is advised to modify the mouthguard. A migraine diary is encouraged, and [facility] care with the [facility] will be maintained. Pain management c onsultation is recommended for chronic back and hip pain, considering the ineffectiveness of cortisone injections. Each decision aims to manage symptoms effectively and improve the patient's quality of life. Discussion Notes During the consultation, I explained the importance of completing the colon screening and will expedite the referral process. Various management options for TMJ were discussed, including dental follow-up for potential mouthguard updates. The utility of a migraine diary was emphasized as a tool for identifying potential triggers and optimizing management. I advocated for specialized pain management for chronic back and hip pain, emphasizing previous treatment inadequacies. The patient is aware of potential therapeutic interventions and understands the necessity for ongoing collaboration with the [facility]. The possibility of relocation was noted, potentially impacting future care logistics. Patient Instructions - Follow up with [facility] for documented condi tions as per the usual schedule. - Contact your dentist for evaluation of your mouthguard wear and discuss material alternatives. - Maintain a diary to track migraines an d associated triggers. - Await a referral call for completing y our colonoscopy. - Consider scheduling a consult with brenna banuelos for chronic hip and back pain management. - Look forward to your planned move to [facility] with your . [facility] Medical History (Updated 07/08/24 @ 16:00 by LOBO Haney) Grinding teeth TMJ (dislocation of temporomandibular joint) Upper respiratory tract infection Chronic headaches Lumbar degenerative disc disease Low back pain Costochondritis Surgical History Hx of hernia repair Family History Maternal Grandmother Diabetes Breast cancer Social History Housing: House Alcohol intake: current Alcohol intake frequency: holidays/special occasions only Patient Tobacco Use Status: Never used Tobacco e-Cigarette/Vaping Use: Never Used service: Yes Current occupational status: employed Cognitive needs: No Hearing needs: No Vision needs: Yes Questionnaire PHQ-9 Over the last 2 weeks, how often have you been bothered by any of the following problems? 1. Little interest or pleasure in doing things: not at all 2. Feeling down, depressed, or hopeless: several days 3. Trouble falling or staying asleep, or sleeping too much: nearly every day 4. Feeling tired or having little energy: more than half the days 5. Poor appetite or overeating: several days 6. Feeling bad about yourself - or that you are a failure or have let yourself or your family down: several days 7. Trouble concentrating on things, such as reading the newspaper or watching television: not at all 8. Moving or speaking so slowly that other people could have noticed. Or the opposite - being so fidgety or restless that you have been moving around a lot more than usual: not at all 9. Thoughts that you would be better off or of hurting yourself in some way: not at all Total score: 8 Depression Screening Interpretation: Positive (denies any si or hi) Depression Screening Follow-up: Existing condition and In treatment Depression Screening Done: Yes 82438 - PHQ-9 Billing: Yes Source: Developed by Drs. Lopez Moore, Kaylyn Quinn, Uriah Ramos and colleagues, with an educational kadi from [employer]. Thrive Questionnaire Date Thrive assessed: 07/08/24 I am a: Patient What is your living situation today?: I have a steady place to live Within the past 12 months, did the food you bought not last and you didn't have the money to get more?: Never true Within the past 12 months, did you worry whether your food would run out before you got money to buy more?: Never true Do you have trouble paying for medicines?: No Do you have trouble getting transportation to medical appointments?: No Do you have trouble paying your heating and electricity bill?: No Do you have trouble taking care of your child, family member or friend?: No Do you have trouble with day-to-day activities such as bathing, preparing meals, shopping, managing finances, etc.?: No Are you currently unemployed and looking for a job?: No Are you interested in more education?: No Please select the resources that you would like help with: None Currently or been in a relationship where the following occur: No concerns reported THRIVE Score: 0 AUDIT C Alcohol Use Questionnaire (AUDIT-C) 1. How often do you have a drink containing alcohol?: Monthly or less 2. How many drinks containing alcohol do you have on a typical day when you are drinking?: 1 or 2 3. How often do you have six or more drinks on one occasion?: Never Total Score: 1 Score Reviewed/Action Taken: Yes JORDAN-7 AMB Questionnaire JORDAN-7 Date JORDAN - 7 assessed: 07/08/24 Feeling nervous, anxious, or on edge: 3 = Nearly every day Not being able to stop or control worryin = Several days Worrying too much about different things: 1 = Several days Trouble relaxin = Several days Being so restless that it is hard to sit still: 0 = Not at all Becoming easily annoyed or irritable: 1 = Several days Feeling afraid as if something awful might happen: 1 = Several days Total JORDAN-7 score (0-4 normal; 5-9 mild; 10-14 moderate; 15-21 severe): 8 Source: Developed by Kaylyn HobbsW. Kai, Uriah Ramos and colleagues, with an educational kadi from [employer]. JORDAN-7 Assessment Billing JORDAN-7 Assessment Tool: JORDAN-7 Assessment 53460 Physical exam (Primary Care) Vital Signs: Last Vital Signs Pulse 91 07/08/24 15:02 BP 130/78 07/08/24 15:02 Pulse Ox 97 07/08/24 15:02 Oxygen Delivery Method Room Air 07/08/24 15:02 BMI result Body Mass Index 33.6 Tobacco/Smoking Status: Tobacco use Status Tobacco use date assessed 07/08/24 07/08/24 15:05 Patient Tobacco Use Status Never used Tobacco 07/08/24 15:05 e-Cigarette/Vaping Use Never Used 07/08/24 15:05 PHQ-9: PHQ-9 Score PHQ-9: Total score 8 07/08/24 15:05 Depression Screening Interpretation: Positive (denies any si or hi) Depression Screening Follow-up: Existing condition and In treatment Thrive Assessment: Date of Thrive Assessment Date Thrive assessed 07/08/24 07/08/24 15:05 Currently or been in a relationship where the following occur: No concerns reported Coding Level of Care Code Est Pt Prev Care 40-64y(04630) Diagnoses Physical exam Z00.00 Vitamin D deficiency E55.9 Screening for prostate cancer Z12.5 Additional Codes JORDAN-7 Assessment Billing - JORDAN-7 Assessment Tool: JORDAN-7 Assessment 02246 ([id number]) PHQ-9 - 99283 - PHQ-9 Billing: Yes ([id number]) Assessment & Plan Assessment & Plan (1) Physical exam: Code(s): Z00.00 - Encounter for general adult medical examination without abnormal findings Category: Medical (2) Vitamin D deficiency: Code(s): E55.9 - Vitamin D deficiency, unspecified Category: Medical (3) Screening for prostate cancer: Code(s): Z12.5 - Encounter for screening for malignant neoplasm of prostate Category: Medical Plan . Orders: Orders Comprehensive [place]. Panel Fast Today Z00.00 - Encounter for general adult medical examination without abnormal findings UA CC w/rflx Micro + Cult Today Z00.00 - Encounter for general adult medical examination without abnormal findings Lipid Panel Today Z00.00 - Encounter for general adult medical examination without abnormal findings Vitamin D 25-OH Total Today E55.9 - Vitamin D deficiency, unspecified Complete Blood Count Auto Diff Today Z00.00 - Encounter for general adult medical examination without abnormal findings TSH reflex Free T4 Today Z00.00 - Encounter for general adult medical examination without abnormal findings Prostate Specific Antigen Scr Today Z12.5 - Encounter for screening for malignant neoplasm of prostate Referrals Open Access Screening Colonoscopy Referral Z12.11 - Encounter for screening for malignant neoplasm of colon, Z12.12 - Encounter for screening for malignant neoplasm of rectum
--- OUTSIDE RECORDS SUMMARY | 2024-07-08 15:59 | XMS_ITS ---
Author Organization [facility] Address [address] [place] [address] Care Team Providers Care Used Car Sales Supervisor Name Role Phone Juan J Ruggiero Primary Care Provider Unav ailable Belle Camachoine Unavailable [phone] Allergies No Known Allergies REASON FOR VISIT Last Visit PCP 10/2023, Heel pain Medications Medication SIG (Take, Route, Frequency, Duration) Notes Start Date End Date Status Naftin 2 % 1 application Soil And Plant Scientist ally Once a day for 30 days Active Night Splint AFO - L1930 as directed 10/10/2023 Active Custom Orthotics as directed 10/10/2023 Active Nabumetone 750 MG 1 tablet Orally ONCE A DAY WITH FOOD for 30 day(s) 11/13/2023 Not-Taking Physical Therapy . . . 2-3x/week for 3- 4 weeks Active Aleve PRN Active Social History Tobacco Use: Social History [...] Status Risk Notes Problem Plantar fascial fibromatosis (21242352) Plantar fasciitis, bilateral (M72.2) Active confirmed Vital Signs Height 6ft in 03/31/2024 Weight 240 lbs 03/31/2024 BMI 32.55 kg/m2 03/31/2024 Encounters Encounter Location Date Provider Diagnosis [facility] [address] [address] 03/31/2024 Liset Camacho Pain in right foot M79.671 ; Plantar fasciitis, bilateral M72.2 ; Calcaneal spur, right foot M77.31 ; Other myositis of right foot M60.871 ; Bursitis of right foot M77.51 ; Pain in left foot M79.672 ; Calcaneal spur, left foot M77.32 ; Other myositis of left foot M60.872 and Bursitis of left foot M77.52 Assessments Encounter Date Diagnosis (ICD Code) Assessment Notes Treatment Notes Treatment Clinical Notes Section Notes 03/31/2024 Pain in right foot (ICD-10 - M79.671) 03/31/2024 Plantar fasciitis, bilateral (ICD-10 - M72.2) Patient Educated with: HEEL CORD STRETCHES.pdf (HEEL CORD STRETCHES.pdf) Patient Educated with: RICE THERAPY.pdf (RICE THERAPY.pdf) 03/31/2024 Calcaneal spur, right foot (ICD-10 - M77.31) 03/31/2024 Other myositis of right foot (ICD-10 - M60.871) 03/31/2024 Bursitis of right foot (ICD-10 - M77.51) 03/31/2024 Pain in left foot (ICD-10 - M79.672) 03/31/2024 Calcaneal spur, left foot (ICD-10 - M77.32) 03/31/2024 Other myositis of left foot (ICD-10 - M60.872) 03/31/2024 Bursitis of left foot (ICD-10 - M77.52) Plan Of Treatment Treatment Notes Assessment Notes Plantar fasciitis, bilateral Patient Edu cated with: HEEL CORD STRETCHES.pdf (HEEL CORD STRETCHES.pdf) Patient Educated with: RICE THERAPY.pdf (RICE THERAPY.pdf) Next Appt Details Follow Up: 3-4 Weeks, Reason : case picker OTs Progress Notes * True MACIAS RDOB:1975 (48 yo M)Acc No.[id number]:03/31/2024 Progress Note Patient:?True MACIAS Provider:?Liset Camacho DPM :1975???Age:48 Y???Sex:Male Breezy e:03/31/2024 Address[address] Pcp:NILESH Covarrubias Subjective: * Chief Complaints: * ???Last Visit PCP 10/2023Heel pain * HPI: ???Heel pain:?Nature:?tenderness, sharp pain, stiffness.?Location:?Proximal plantar aspect of Heel , B/L.?Duration:?several months .?Course:?worse.?Aggravated:?standing, walking, walking first thing in the morning/after rest.?Treatments:?rest/alter normal daily activity, pre-fabricated orthoses, stretching, massage, AFO-nightsplint, corticosteriod injection.? * ROS:?General/Constitutional:?Nausea?denies.?Vomiting?denies.?Hunger Thirst?denies.?Loss appetite?denies.?Chills?denies.?Fatigue?denies.?Fever?denies.?Night Sweats?denies.?Unexplained weight loss?denies.?Unexplained [...] Past Hospitalization * Family History:?Mother: mine koenig?Father: alive.?Spouse: alive.? * Social History:?Tobacco Use:?Tobacco Use/Smoking?Are you [...] yes. ?Exercise: yes. ?Marital status: . 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 * Medications:?TakingAleve , N otes to Pharmacist: PRNNaftin 2 % Gel 1 application Externally Once a day Night Splint AFO - L1930 as directed Custom Orthotics as directed Physical Therapy . . . . 2-3x/week Taking Aleve , Notes to Pharmacist: PRNTaking Naftin 2 % Gel 1 application Externally Once a day Taking Night Splint AFO - L1930 as directed Taking Custom Orthotics as directed Taking Physical Therapy . . . . 2-3x/week Not-Taking/PRNNabumetone 750 MG Tablet 1 tablet Orally ONCE A DAY WITH FOOD Medication List reviewed and reconciled with the patientNot-Taking/PRN Nabumetone 750 MG Tablet 1 tablet Orally ONCE A DAY WITH FOOD Medication List reviewed and reconciled with the patient * Allergies:?N.K.D.A.yes[Aller gies Verified] Objective: * Vitals:?Ht:6ft, Wt:240, BMI: 32.55, Shoe size:10.5, Ht-cm: 182.88 cm, Wt-k.86 kg. * Examination: ???Heel Pain: ?INSPECTION REVEALS:?Pain on Palpation to Plantar Fascia med. and central bands, intrinsic musc., infra-calcaneal bursa, and med calc tubercle, B/L, No pain: posterior/superior heel, achilles bursa/tendon, sinus tarsi, peroneals, or with lateral heel compression; no limited STJ ROM, calor, or ecchymosis.?Orthopedic: ?MUSCLE STRENGTH:?5/5 all groups in a symmetrical fashion B/L.?GAIT ABNORMALITY:? antalgic , pronated, abducted, B/L.?FOOT MORPHOLOGY:? Pes Planus structure, Decreased Ankle joint dorsiflexion ROM, knee extended.?FOOTWEAR:?shoe gear properties exacerbate patients foot/toe deformity.?Neurological: ?TINEL'S COMPRESSION:?Negative tarsal tunnel, woodrow pedis, and medial calcaneal nerves.?General Examination: ?GENERAL APPEARANCE:?pleasant, alert, well nourished, well developed, well hydrated, with good attention to hygene/body habitus, and in no acute distress.?ORIENTED:?person,place, and time.?Vascular: ?DP PULSES (B):?2/4, B/L.?PT PULSES (B):?2/4, B/L.?CAPILLARY FILL TIME:?3 secs. per digit, B/L.?TROPHIC CONDITION-TEXTURE/ELASTICITY/TURGOR/HAIR GROWTH (B):?normal, B/L.?TEMPERTURE GRADIENT (C):?warm to cool, proximal to distal, B/L.?EDEMA (C):?no edema.?Dermatologic: ?SKIN FINDINGS:?Skin exam reveals normal color, texture, elasticity, and turgor. The interspaces are clear, B/L.? * Physical Examination:?L3000 Custom Fabricated OT:?Custom Orthotic?Custom Fabricated OrthosesRCSP: ?7 degree valgus B/L NCSP: 3 degree valgus B/L AJ DF Knee extended L 0 deg AJ DF Knee extended R 5 deg AJ DF Knee flexed R 5 deg AJ DF Knee flexed L? 5 deg .? Assessment: * Assessment: 1.?Pain in right foot - M79. 671???2.?Plantar fasciitis, bilateral - M72.2 (Primary)???Specify :Chronic problem, Worse (4)???3.?Calcaneal spur, right foot - M77.31???4.?Other myositis of right foot - M60.871???5.?Bursitis of right foot - M77.51???6.?Pain in left foot - M79.672???7.?Calcaneal spur, left foot - M77.32???8.?Other myositis of left foot - M60.872???9.?Bursitis of left foot - M77.52??? Plan: * Treatment: * Procedure Codes:?L3000 Presc ription Custom Fabricated Foot insert, Units: 2.00 , Modifiers: GY * Preventive Medicine:? ??Counseling:?Discussion:?-14: Office or other [...] have encouraged the patient to call the office.?Heel pain:?FASCIITIS: I explained to the patient the possible etiologies of Plantar Fasciitis including foot type/shoegear/activity level/exercise routine and the risks/benefits of all the different treatment options for heel pain including: No treatment at all, Rest, Ice, NSAIDs(only if well tolerated after meals), New/supportive Shoegear, Strappings and Tapings, Stretching exercises, Deep Tissue Massage, Heel cups/cushions, Arch support/shoe inserts, Custom orthoses, Topical analgesics including Aspercream/Voltaren gel, Night splint AFO for am stiffness, Cortisone injection therapy, Cast boot with crutches/cane/or walker for assisted ambulation, Physical Therapy, EPAT/ESWT, Interfil injection therapy, as well as surgical [place]/Endoscopic Fasciitomy surgical procedures if needed. Recommendations were made to limit barefoot walking, eliminate wearing nonsupportive shoegear (i.e. flip-flops or sandals, or a shoe with an easily bendable, foldable, or twistable sole) and wear shoegear with a good solid sole, a supportive arch, and plenty of room for an insert/orthotic if necessary. If wearing sandals was required by the patient, we recommended orthopedic sandals such as Orthoheel or Birkenstock even while in the home. If the patient wore heels in the past, we recommended they continue, but eliminate the use of flats. The advantages and disadvantages of each option were discussed and the patients questions re: types of shoegear, custom vs prefabricated inserts, activity level, PO vs Topical medications (and their respective potential complications/drug interactions/side effects), and consistency in home treatment regimens for optimal success were answered to their satisfaction. Literature detailing plantar fasciitis and the various treatment options were dispensed and reviewed.?Orthotics:?Custom OT: A comprehensive biomechanical exam, gate analysis, and casting for custom orthoses was performed for L3000 ea per foot.?P.R.I.C.E.:?The patient was counseled on the use of P.R.I.C.E. and NSAIDS (if well tolerated) to aid in the recovery from their painful condition.?Shoe Gear Counseling:?The patient and I reviewed the types of shoes they should be wearing. My recommendation included obtaining a well-fitted shoe with a good supportive, non-foldable nor twistable sole, plenty of toe/room for the forefoot, and proper arch support. Based on todays examination, I recommended the patient look for new shoes, by having their feet professionally measured. We discussed that generally the best time of the day for a shoe fitting is the afternoon. Different shoes types and brands to best match the patients occupation and vocation were discussed. Specific brand selection will be up to the patient, their individual foot condition/deformities, and fit. The patient and I reviewed the standard new shoe break in period by wearing them for a few hours a day while checking for redness or sores as wear time is increased. The patient verbally confirmed to understanding the information discussed.?Stretching Exercises:?Stretching and deep tissue massage exercises for the patients injury/diagnosis were discussed and demonstrated, handouts were dispensed.? ??Screening/Special Tests:?Fall Risk?Screening:?No falls in the past year ?FALLS: Screening for Future Fall Risk?Have you had any falls with injury in the past year??No * Follow Up:?3-4 Weeks (Reason : case picker OTs) * Images: * Sign off status: Completed true * Provider:?Liset Camacho DPM Date:?0 03/31/2024 Generated for Kai mckeon/Vishal/Gwen on:?07/08/2024 03:59 PM EDT History and Physical Notes * HPI (History of Present Illness) Category Sub-Category Detail Notes Category Not es Heel pain Duration: several months Nature: tenderness, sharp pa in, stiffness Location: Proximal plantar asp ect of Heel , B/L Aggravated: standing, walking, w alking first thing in the morning/after rest Course: worse Treatments: rest/alter normal da keren activity, pre-fabricated orthoses, stretching, massage, AFO-nightsplint, corticosteriod injection Physical Examination Category Sub-Category Detail Notes Section Note s L3000 Custom Fabricated OT Custom Orthotic Custom Fabricated OrthosesRCSP: 7 degree valgus B/LNCSP: 3 degree valgus B/LAJ DF Knee extended L 0 degAJ DF Knee extended R 5 degAJ DF Knee flexed R 5 degAJ DF Knee flexed L 5 deg Examination Category Sub-Category Detail Notes Category Not es Heel Pain INSPECTION REVEALS: Pain on Palp ation to Plantar Fascia med. and central bands, intrinsic musc., infra-calcaneal bursa, and med calc tubercle, B/L, No pain: posterior/superior heel, achilles bursa/tendon, sinus tarsi, peroneals, or with lateral heel compression; no limited STJ ROM, calor, or ecchymosis Neurological TINEL'S COMPRESSION: Negative ta rsal tunnel, woodrow pedis, and medial calcaneal nerves Dermatologic SKIN FINDINGS: Skin exam reveal s normal color, texture, elasticity, and turgor. The interspaces are clear, B/L Orthopedic GAIT ABNORMALITY: antalgic , pronated, ab ducted, B/L FOOT MORPHOLOGY: Pes Planus structure , Decreased Ankle joint dorsiflexion ROM, knee extended FOOTWEAR EVALUATION: shoe gear propertie s exacerbate patients foot/toe deformity MUSCLE STRENGTH: 5/5 all groups in a [...]
--- OUTSIDE RECORDS SUMMARY | 2024-07-08 15:59 | XMS_ITS | Continuity of Care Document ---
Author Name [facility] Organization [facility] Care Team Providers Care Predictive Maintenance Specialist Name Role Phone [facility] Unavailable Unavailable Immunizations Combined list of available immunizations from the Department of Defense and Veterans Affairs facilities. Immunization Series Date Given Administered By Site Reaction Lot Number CVX Code Drug Technical Planner Status Comments Source SARS-COV-2 (COVID-19) vaccine, mRNA, spike protein, LNP, preservative free, 100 mcg or 50 mcg dose 2 2020 Unknown, Provider [id number] 207 [facility] (MOD) complet ed SARS-COV- 2 (COVID-19 ) vaccine, mRNA, spike protein, LNP, preservat janet free, 100 mcg or 50 mcg dose DoD SARS-COV-2 (COVID-19) vaccine, mRNA, spike protein, LNP, preservative free, 100 mcg or 50 mcg dose 1 2020 Unknown, Provider [id number] 207 [facility] (MOD) complet ed SARS-COV- 2 (COVID-19 ) vaccine, mRNA, spike protein, LNP, preservat janet free, 100 mcg or 50 mcg dose DoD Influenza, injectable, quadrivalent, preservative free 1 2017 Unknown, Provider 150 (MVX) complet ed Influenza , injectabl e, quadrival ent, preservat janet free DoD Influenza, seasonal, injectable, preservative free 1 2016 Unknown, Provider [id number] [employer] (SEQ) complet ed Influenza , [...] injectable, preservative free 1 2013 Unknown, Provider [id number] 140 [facility] ([facility]) complet ed Influenza , seasonal, injectabl e, preservat janet free DoD Influenza, seasonal, injectable, preservative free 1 2012 Unknown, Provider 140 (MVX) complet ed Influenza , seasonal, injectabl e, preservat janet free DoD Influenza, seasonal, injectable 1 2012 Unknown, Provider [id number] 141 [facility] [employer] (CSL) complet ed Influenza , seasonal, injectabl e DoD tetanus toxoid, reduced diphtheria toxoid, and acellular pertu is vaccine, adsorbed 1 2011 Unknown, Provider [id number] 115 [facility] ([facility]) complet ed tetanus toxoid, reduced diphtheri a toxoid, and acellular pertussis vaccine, adsorbed DoD Influenza, seasonal, injectable, preservative free 15 2011 Unknown, Provider [id number] 140 [facility] [employer] (CSL) complet ed Influenza , seasonal, injectabl e, preservat janet free DoD Influenza, seasonal, injectable 1 2010 Unknown, Provider 141 [employer] (NOV) complet ed Influenza , seasonal, injectabl e DoD influenza virus vaccine, live, attenuated, for intranasal use 1 2009 Unknown, Provider [id number] 111 [employer] (MED) complet ed influenza virus vaccine, live, attenuate d, for intranasa l use [facility] Novel influenza-H1N 1-09, injectable 1 2009 Unknown, Provider [id number] 127 [employer] (NOV) complet ed Novel influenza -[id number], injectabl e DoD influenza virus vaccine, live, attenuated, for intranasal use 1 2008 Unknown, Provider [id number] 111 [employer] (MED) complet ed influenza virus vaccine, live, attenuate d, for intranasa l use [facility] typhoid Vi capsular polysaccharid e vaccine 1 2008 Unknown, Provider [id number] [employer] ([facility]) complet ed typhoid Vi capsular polysacch aride vaccine DoD influenza virus vaccine, split virus (incl. purified surface antigen)-reti red CODE 1 2007 Unknown, Provider [id number] 15 [facility] ([facility]) complet ed influenza virus vaccine, split virus (incl. purified surface antigen)- retired CODE DoD influenza virus vaccine, split virus (incl. purified surface antigen)-reti red CODE 1 2006 Unknown, Provider [id number] 15 [facility] ([facility]) complet ed influenza virus vaccine, split virus (incl. purified surface antigen)- retired CODE DoD typhoid vaccine, parenteral, other than acetone-kille d, dried 1 2006 Unknown, Provider [id number] 41 [employer] ([facility]) complet ed typhoid vaccine, parentera l, other than acetone-k illed, dried DoD influenza virus vaccine, split virus (incl. purified surface antigen)-reti red CODE 1 2005 Unknown, Provider [id number] 15 Other (OT) complet ed influenza virus vaccine, split virus (incl. purified surface antigen)- retired CODE DoD tetanus and diphtheria toxoids, adsorbed, preservative free, for adult use (2 Lf of tetanus toxoid and 2 Lf of diphtheria toxoid) 1 2004 Unknown, Provider [id number] 09 [employer] Paste[employer] ([facility]) complet ed tetanus and diphtheri a toxoids, adsorbed, preservat janet free, for adult use (2 Lf of tetanus toxoid and 2 Lf of diphtheri a toxoid) DoD influenza virus vaccine, split virus (incl. purified surface antigen)-reti red CODE 1 2004 Unknown, Provider [id number] 15 [employer] Paste[employer] ([facility]) complet ed influenza virus vaccine, split virus (incl. purified surface antigen)- retired CODE DoD typhoid vaccine, parenteral, other than acetone-kille d, dried 1 2004 Unknown, Provider [id number] 41 [employer] Paste[employer] ([facility]) complet ed typhoid vaccine, parentera l, other than acetone-k illed, dried DoD tuberculin skin test; purified protein derivative solution, intradermal 1 2003 Unknown, Provider [id number] 96 [employer] Pasteur ([facility]) complet ed tuberculi n skin test; purified protein derivativ e solution, intraderm al [facility] influenza virus vaccine, whole virus 1 2002 Unknown, Provider [id number] 16 [employer] (PW) complet ed influenza virus vaccine, whole virus DoD influenza virus vaccine, whole virus 1 2002 Unknown, Provider [id number] 16 [employer] (PW) complet ed influenza virus vaccine, whole virus DoD typhoid vaccine, parenteral, other than acetone-kille d, dried 1 2001 Unknown, Provider [id number] 41 Sanofi Pasteur ([facility]) complet ed typhoid vaccine, parentera l, other than acetone-k illed, dried DoD influenza virus vaccine, whole virus 1 2001 Unknown, Provider [id number] 16 San[employer]i Pasteur ([facility]) complet ed influenza virus vaccine, whole virus DoD tuberculin skin test; purified protein derivative solution, intradermal 1 2001 Unknown, Provider [id number] 96 San[employer]i Paste[employer] ([facility]) complet ed tuberculi n skin test; purified protein derivativ e solution, intraderm al DoD hepatitis B vaccine, adult dosage 3 2001 Unknown, Provider [id number] [employer] (MSD) complet ed hepatitis B vaccine, adult dosage DoD tuberculin skin test; purified protein derivative solution, intradermal 1 2001 Unknown, Provider [id number] 96 Sanofi Pasteur ([facility]) complet ed tuberculi n skin test; purified protein derivativ e solution, intraderm al DoD influenza virus vaccine, whole virus 1 2000 Unknown, Provider [id number] 16 [employer]i Paste[employer] ([facility]) complet ed influenza virus vaccine, whole virus DoD hepatitis B vaccine, adult dosage 2 2000 Unknown, Provider [id number] [employer] (MSD) complet ed hepatitis B vaccine, adult dosage DoD hepatitis A vaccine, adult dosage 2 2000 Unknown, Provider [id number] [employer] (MSD) complet ed hepatitis A vaccine, adult dosage DoD influenza virus vaccine, whole virus 2 1999 Unknown, Provider [id number] 16 [employer] (ZEHRA) complet ed influenza virus vaccine, whole virus DoD meningococcal polysaccharid e vaccine (MPSV4) 1 1999 Unknown, Provider 32 () complet ed meningoco ccal polysacch aride vaccine (MPSV4) DoD typhoid vaccine, parenteral, other than acetone-kille d, dried 1 1999 Unknown, Provider [id number] [facility] complet ed typhoid vaccine, parentera l, [...] and 2 Lf of diphtheri a toxoid) [facility] influenza virus vaccine, whole virus 1 1994 [...] 37 () complet ed yellow fever vaccine [facility] Social History Combined list of available smoking, tobacco, and other social history from Department of Defense and Veterans Affairs facilities. Social History Type Response Date Comment Sour e This section is an empty social history section. [facility]
--- OUTSIDE RECORDS SUMMARY | 2024-07-08 15:59 | XMS_ITS | Patient Health Record ---
Author Organization [facility] Address [address] [place] [address] Care Team Providers Care Hand Tennis Ball Coverer Name Role Phone Juan J Ruggiero Primary Care Provider Liset Zaragoza Unavailable [phone] Nate Xie Unavailable [phone] Allergies No Known Allergies Reason For Referral Diagnosis 1 Pain in unspecified foot (M79.673) Referring Provider First Name Marina Sam Referring Provider Last Name Getachew Referring Provider [facility] Referred [facility] Referred Provider Merissa Duggan Referred Address [address] [place], [place],[address], Referred Provider Specialty Podiatry Referral Priority Routine Diagnosis 1 Pain in unspecified foot (M79.673) Referring Provider First Name Marina Sam Referring Provider Last Name Getachew Referring Provider Speciality Internal [facility] Referred Provider Nate Xie Referred Address [address] [place], [place],[address],[place] Referred Provider Specialty Podiatry Referral Priority Routine Medications Medication SIG (Take, Route, Frequency, Duration) Notes Start Date End Date Status Aleve PRN Active Naftin 2 % 1 application [employer] ally Once a day for 30 days Active Night Splint AFO - L1930 as directed 10/10/2023 Active Custom Orthotics as directed 10/10/2023 Active Nabumetone 750 MG 1 tablet Orally ONCE A DAY WITH FOOD for 30 day(s) 11/13/2023 Not-Taking Physical Therapy . . . 2-3x/week for 3- 4 weeks Active Social History Tobacco Use: Social History [...] Status Risk Notes Problem Plantar fascial fibromatosis (74661946) Plantar fascial fibromatosis (M72.2) Active confirmed Problem Plantar fascial fibromatosis (02417547) Plantar fasciitis, bilateral (M72.2) Active confirmed Vital Signs Height 6ft in 03/31/2024 Weight 240 lbs 03/31/2024 BMI 32.55 kg/m2 03/31/2024 Encounters Encounter Location Date Provider Diagnosis [address] [address] 10/10/2023 Nate Xie Plantar fascial fibromatosis M72.2 ; Tinea pedis B35.3 ; Pain in left foot M79.672 and Pain in right foot M79.[address] [address] 11/13/2023 Nate Xie Plantar fascial fibromatosis M72.2 ; Tinea pedis B35.3 ; Pain in left foot M79.672 and Pain in right foot M79.[address] [address] 12/17/2023 Nate Xie Plantar fascial fibromatosis M72.2 ; Tinea pedis B35.3 ; Pain in left foot M79.672 ; Pain in right foot M79.671 and Anterior camacho splints S86.899A [address] [address] 03/31/2024 Liset Camacho Pain in right foot M79.671 ; Plantar fasciitis, bilateral M72.2 ; Calcaneal spur, right foot M77.31 ; Other myositis of right foot M60.871 ; Bursitis of right foot M77.51 ; Pain in left foot M79.672 ; Calcaneal spur, left foot M77.32 ; Other myositis of left foot M60.872 and Bursitis of left foot M77.52 [facility] [address] [place] [phone] 04/14/2024 [facility] [address] [place] [address] 2024 Lis[facility]acho [facility] [address] [place] [address] 10/10/2023 [facility] [address] [place] [address] 10/10/[address] [address] 12/05/2023 [facility] [address] [place] [phone] 03/31/2024 Liset Camacho Assessments Encounter Date Diagnosis (ICD Code) Assessment [...] M72.2) 12/17/2023 Tinea pedis (ICD-10 - B35.3) 03/31/2024 Pain in right foot (ICD-10 - M79.671) 03/31/2024 Plantar fasciitis, bilateral (ICD-10 - M72.2) Patient Educated with: HEEL CORD STRETCHES.pdf (HEEL CORD STRETCHES.pdf) Patient Educated with: RICE THERAPY.pdf (RICE THERAPY.pdf) 12/17/2023 Pain in left foot (ICD-10 - M79.672) 03/31/2024 Calcaneal spur, right foot (ICD-10 - M77.31) 10/10/2023 Pain in left foot (ICD-10 - M79.672) 11/13/2023 Pain in left foot (ICD-10 - M79.672) 12/17/2023 Pain in right foot (ICD-10 - M79.671) 11/13/2023 Pain in right foot (ICD-10 - M79.671) 10/10/2023 Pain in right foot (ICD-10 - M79.671) 03/31/2024 Other myositis of right foot (ICD-10 - M60.871) 03/31/2024 Bursitis of right foot (ICD-10 - M77.51) 12/17/2023 Anterior camacho splints (ICD-10 - S86.899A) 03/31/2024 Pain in left foot (ICD-10 - M79.672) 03/31/2024 Calcaneal spur, left foot (ICD-10 - M77.32) 03/31/2024 Other myositis of left foot (ICD-10 - M60.872) 03/31/2024 Bursitis of left foot (ICD-10 - M77.52) Plan Of Treatment Pending Test Test Name Order Date X ray : Foot, left 3V 10/10/2023 X ray : Foot, right 3V 10/10/2023 Insurance Providers Payer Name Payer Address Payer Phone Subscriber Number Group Number Insured Name Patient Relationship to Insured Coverage Start Date Coverage End Date [facility] [address] [place] [address] [id number] True Winkler Self - patient is the insured Medical (General) History Medical History History ICD Code Anxiety Back,Hip,and Knee pain Depression L 3 - 4 L 4 - 5 L 5 - S1 Surgical History Surgery Date(Month/Year) hernia 07/2002
--- OUTSIDE RECORDS SUMMARY | 2024-07-08 15:59 | XMS_ITS ---
Author Organization [facility] Address [address] [place] [address] [place] [address] Care Team Providers Care Bowling Alley Operator Name Role Phone Juan J Ruggiero Primary Care Provider Unav ailable Liset Camacho Unavailable [phone] REASON FOR VISIT Nexus letter for [facility] Service Connection Encounters Encounter Location Date [facility] [address] [place] [phone] 04/14/2024 Liset Camacho Plan Of Treatment No Information Progress Notes * True MACIAS RDOB:1975 (49 yo M)Acc No.[id number]:04/14/2024 Patient:?True MACIAS :1975???Age:48 Y???Sex:Male [address] [place] [place], [address] * * Date:?
--- OUTSIDE RECORDS SUMMARY | 2024-07-08 16:00 | XMS_ITS ---
Author Organization [facility] Address [address] [place] [address] Care Team Providers Care Direct Sales Consultant Name Role Phone Juan J Ruggiero Primary Care Provider Unav ailable Liset Camacho Unavailable [phone] REASON FOR VISIT Documents Encounters Encounter Location Date Provider Diagnosis [facility] [address] [place] [address] 2024 Liset Camacho Plan Of Treatment No Information Progress Notes * True MACIAS RDOB:1975 (49 yo M)Acc No.[id number] Patient:?True MACIAS :1975???Age:49 Y???Sex:Male Address:[address] [place], [address] * * Date:?
== END 2024-07-08 16:03 | disposition home or self-care (01) ==
LOC: HO.HMCC 14:55
PROVIDERS: PCP Nurse Practitioner Primary Care; Visit Provider Nurse Practitioner Family
DX: Z00.00 Encounter for general adult medical examination without abnormal findings (principal); E55.9 Vitamin D deficiency, unspecified; Z12.5 Encounter for screening for malignant neoplasm of prostate

== ENCOUNTER → 2024-07-08 14:55 | Outpatient (BNVA) | payer OTHER, SELFPAY | PROVIDERS: PCP Nurse Practitioner Primary Care; Visit Provider Nurse Practitioner Family | DX: Z00.00 Encounter for general adult medical examination without abnormal findings (principal); E55.9 Vitamin D deficiency, unspecified | CPT/HCPCS: 96127 ==

== ENCOUNTER 2024-08-04 12:21 | Outpatient (AMB) | payer OTHER, SELFPAY ==
--- NOTE | 2024-08-04 12:30 | AM.OFFVISNUR ---
Intake Visit Reasons: Tdap Intake Note: Pt arrived for Tdap booster Allergies acetaminophen [From Percocet] Adverse Reaction (Intermediate, Verified 07/08/24 15:02) Hives oxycodone [From Percocet] Adverse Reaction (Intermediate, Verified 07/08/24 15:02) Hives Immunizations Boostrix Tdap 2.5 Lf unit-8 mcg-5 Lf/0.5 mL intramuscular syringe Performing Provider: LOBO Haney Performing Location: [facility] Administered by: Padmini Manrique RN on 08/04/24 12:40 Dose Route Admin Location Dispensed Lot Number Expiration Date NDC Supervisor [employer] 0.5 mL IM Left Deltoid 0.5 mL [id number] 10/28/26 92920-840-06 [email or web address] VIS Given Date VIS Provided VIS Publication Date 08/04/24 Single Vaccine 24 Eligibility Eligibility Date Funding Source Not [facility] Eligible 08/04/24 Private Assessment & Plan Assessment & Plan Orders: Orders TDaP Immunization Today Z23 - Encounter for immunization Medications: New Boostrix Tdap (diphth,pertus(acell),tetanus) 0.5 mL IM ONCE 0.5 mL 0RF NS Z23 - Encounter for immunization Coding
--- OUTSIDE RECORDS SUMMARY | 2024-08-04 13:44 | XMS_ITS | Continuity of Care Document ---
Author Name [facility] Organization [facility] Care Team Providers Care Executive Consultant Name Role Phone [facility] Unavailable Unavailable Immunizations Combined list of available immunizations from the Department of Defense and Veterans Affairs facilities. Immunization Series Date Given Administered By Site Reaction Lot Number CVX Code Drug Medical Management Trainer Status Comments Source SARS-COV-2 (COVID-19) vaccine, mRNA, spike protein, LNP, preservative free, 100 mcg or 50 mcg dose 2 2020 Unknown, Provider [id number] [employer] (MOD) complet ed SARS-COV- 2 (COVID-19 ) vaccine, mRNA, spike protein, LNP, preservat janet free, 100 mcg or 50 mcg dose DoD SARS-COV-2 (COVID-19) vaccine, mRNA, spike protein, LNP, preservative free, 100 mcg or 50 mcg dose 1 2020 Unknown, Provider [id number] 207 [employer] (MOD) complet ed SARS-COV- 2 (COVID-19 ) vaccine, mRNA, spike protein, LNP, preservat janet free, 100 mcg or 50 mcg dose DoD Influenza, injectable, quadrivalent, preservative free 1 2017 Unknown, Provider 150 (MVX) complet ed Influenza , injectabl e, quadrival ent, preservat janet free DoD Influenza, seasonal, injectable, preservative free 1 2016 Unknown, Provider [id number] [employer] (SEQ) complet ed Influenza , [...] injectable, preservative free 1 2013 Unknown, Provider [id number] 140 [facility] ([facility]) complet ed Influenza , seasonal, injectabl e, preservat janet free DoD Influenza, seasonal, injectable, preservative free 1 2012 Unknown, Provider 140 (MVX) complet ed Influenza , seasonal, injectabl e, preservat janet free DoD Influenza, seasonal, injectable 1 2012 Unknown, Provider [id number] 141 [facility] [employer] (CSL) complet ed Influenza , seasonal, injectabl e DoD tetanus toxoid, reduced diphtheria toxoid, and acellular pertu is vaccine, adsorbed 1 2011 Unknown, Provider [id number] 115 [facility] ([facility]) complet ed tetanus toxoid, reduced diphtheri a toxoid, and acellular pertussis vaccine, adsorbed DoD Influenza, seasonal, injectable, preservative free 15 2011 Unknown, Provider [id number] 140 [facility] [employer] (CSL) complet ed Influenza , seasonal, injectabl e, preservat janet free DoD Influenza, seasonal, injectable 1 2010 Unknown, Provider 141 [employer] (NOV) complet ed Influenza , seasonal, injectabl e DoD influenza virus vaccine, live, attenuated, for intranasal use 1 2009 Unknown, Provider [id number] 111 [employer] (MED) complet ed influenza virus vaccine, live, attenuate d, for intranasa l use [facility] Novel influenza-H1N 1-09, injectable 1 2009 Unknown, Provider [id number] 127 [employer] (NOV) complet ed Novel influenza -[id number], injectabl e DoD influenza virus vaccine, live, attenuated, for intranasal use 1 2008 Unknown, Provider [id number] 111 [employer] (MED) complet ed influenza virus vaccine, live, attenuate d, for intranasa l use [facility] typhoid Vi capsular polysaccharid e vaccine 1 2008 Unknown, Provider [id number] [employer] ([facility]) complet ed typhoid Vi capsular polysacch aride vaccine DoD influenza virus vaccine, split virus (incl. purified surface antigen)-reti red CODE 1 2007 Unknown, Provider [id number] [facility] ([facility]) complet ed influenza virus vaccine, split virus (incl. purified surface antigen)- retired CODE DoD influenza virus vaccine, split virus (incl. purified surface antigen)-reti red CODE 1 2006 Unknown, Provider [id number] [facility] ([facility]) complet ed influenza virus vaccine, split virus (incl. purified surface antigen)- retired CODE DoD typhoid vaccine, parenteral, other than acetone-kille d, dried 1 2006 Unknown, Provider [id number] [employer] ([facility]) complet ed typhoid vaccine, parentera l, other than acetone-k illed, dried DoD influenza virus vaccine, split virus (incl. purified surface antigen)-reti red CODE 1 2005 Unknown, Provider [id number] Other (OT) complet ed influenza virus vaccine, split virus (incl. purified surface antigen)- retired CODE DoD tetanus and diphtheria toxoids, adsorbed, preservative free, for adult use (2 Lf of tetanus toxoid and 2 Lf of diphtheria toxoid) 1 2004 Unknown, Provider [id number] [employer] ([facility]) complet ed tetanus and diphtheri a toxoids, adsorbed, preservat janet free, for adult use (2 Lf of tetanus toxoid and 2 Lf of diphtheri a toxoid) DoD influenza virus vaccine, split virus (incl. purified surface antigen)-reti red CODE 1 2004 Unknown, Provider [id number] 15 [employer] P[employer] ([facility]) complet ed influenza virus vaccine, split virus (incl. purified surface antigen)- retired CODE DoD typhoid vaccine, parenteral, other than acetone-kille d, dried 1 2004 Unknown, Provider [id number] 41 [employer] Paste[employer] ([facility]) complet ed typhoid vaccine, parentera l, other than acetone-k illed, dried DoD tuberculin skin test; purified protein derivative solution, intradermal 1 2003 Unknown, Provider [id number] 96 [employer] Paste[employer] ([facility]) complet ed tuberculi n skin test; purified protein derivativ e solution, intraderm al [facility] influenza virus vaccine, whole virus 1 2002 Unknown, Provider [id number] 16 [employer] (PW) complet ed influenza virus vaccine, whole virus DoD influenza virus vaccine, whole virus 1 2002 Unknown, Provider [id number] 16 [employer] (PW) complet ed influenza virus vaccine, whole virus DoD typhoid vaccine, parenteral, other than acetone-kille d, dried 1 2001 Unknown, Provider [id number] 41 [employer] Paste[employer] ([facility]) complet ed typhoid vaccine, parentera l, other than acetone-k illed, dried DoD influenza virus vaccine, whole virus 1 2001 Unknown, Provider [id number] 16 [employer] P[employer] ([facility]) complet ed influenza virus vaccine, whole virus DoD tuberculin skin test; purified protein derivative solution, intradermal 1 2001 Unknown, Provider [id number] 96 [employer] P[employer] ([facility]) complet ed tuberculi n skin test; purified protein derivativ e solution, intraderm al DoD hepatitis B vaccine, adult dosage 3 2001 Unknown, Provider [id number] [employer] (MSD) complet ed hepatitis B vaccine, adult dosage DoD tuberculin skin test; purified protein derivative solution, intradermal 1 2001 Unknown, Provider [id number] 96 [employer] Paste[employer] ([facility]) complet ed tuberculi n skin test; purified protein derivativ e solution, intraderm al DoD influenza virus vaccine, whole virus 1 2000 Unknown, Provider [id number] 16 [employer] Paste[employer] ([facility]) complet ed influenza virus vaccine, whole virus DoD hepatitis B vaccine, adult dosage 2 2000 Unknown, Provider [id number] [employer] (MSD) complet ed hepatitis B vaccine, adult dosage DoD hepatitis A vaccine, adult dosage 2 2000 Unknown, Provider [id number] [employer] (MSD) complet ed hepatitis A vaccine, adult dosage DoD influenza virus vaccine, whole virus 2 1999 Unknown, Provider [id number] 16 [employer] (ZEHRA) complet ed influenza virus vaccine, whole virus DoD meningococcal polysaccharid e vaccine (MPSV4) 1 1999 Unknown, Provider 32 () complet ed meningoco ccal polysacch aride vaccine (MPSV4) DoD typhoid vaccine, parenteral, other than acetone-kille d, dried 1 1999 Unknown, Provider [id number] 41 [facility] complet ed typhoid vaccine, parentera [...] and 2 Lf of diphtheri a toxoid) [facility] influenza virus vaccine, whole virus [...] 37 () complet ed yellow fever vaccine [facility] Social History Combined list of available smoking, tobacco, and other social history from Department of Defense and Veterans Affairs facilities. Social History Type Response Date Comment Sour e This section is an empty social history section. [facility]
== END 2024-08-04 13:27 | disposition home or self-care (01) ==
LOC: HO.HMCC 12:21
PROVIDERS: PCP Nurse Practitioner Family; Visit Provider Nurse Practitioner Family
DX: Z23 Encounter for immunization (principal)

== ENCOUNTER → 2024-08-04 12:21 | Outpatient (BNVA) | payer OTHER, SELFPAY | PROVIDERS: PCP Nurse Practitioner Family; Visit Provider Nurse Practitioner Family | DX: Z23 Encounter for immunization (principal) | CPT/HCPCS: 90471; 90715 ==